=== PATIENT | female | born 1955 | race Caucasian/White ===

== ENCOUNTER 2020-04-03 06:56 | Outpatient (NON) | payer MEDICARE, SELFPAY ==
[2020-04-03 18:19] LABS: SARS-CoV-2 RNA PCR Negative
== END 2020-04-03 06:57 ==
LOC: ANHCOVIDDT 07:08
PROVIDERS: PCP Family Medicine; Visit Provider Family Medicine
DX: R68.89 Other general symptoms and signs (principal); Z20.828 Contact with and (suspected) exposure to other viral communicable diseases
CPT/HCPCS: 87635; C9803; U0003

== ENCOUNTER 2020-04-17 01:05 | Outpatient (CLI) | payer MEDICARE, SELFPAY ==
[2020-04-17 19:42] LABS: SARS-CoV-2 RNA PCR Negative
== END 2020-04-17 01:06 | disposition home or self-care (01) ==
LOC: ANHCOVIDDT 01:05
PROVIDERS: PCP Family Medicine; Visit Provider Internal Medicine Gastroenterology
DX: Z01.812 Encounter for preprocedural laboratory examination (principal); Z20.822 Contact with and (suspected) exposure to COVID-19
CPT/HCPCS: C9803; U0003

== ENCOUNTER 2020-04-20 00:37 | Day surgery (SDC) | payer MEDICARE, SELFPAY ==
[2020-04-09 10:29] VITALS: BMI 32.5
[2020-04-20 12:50] VITALS: BP 144/50; PULSE 75; RESP 20; TEMP 37.4; O2SAT 98
[2020-04-20] MEDS: LACTATED RINGERS 1,000 ML 150 ML IV CONT (13:03)
--- NOTE | 2020-04-20 13:07 | WPDANESEPPF ---
Anes - Initial Pre Proc Eval Procedure: Operation Date: 04/20/20 14:00 Proposed Procedures p Esophagogastroduodenoscopy - Vipin Valentin MD Date/Time: 04/20/20 13:07 Surgeon: Vipin Valentin MD Pre Op Diagnosis: Dysphagia,GERD Patient Data Age: 64 Gender: F Height: 5 ft 1 in Weight: 78.5 kg Last Vital Signs Temp 99.3 F 04/20/20 12:50 Pulse 75 04/20/20 12:50 Resp 20 04/20/20 12:50 BP 144/50 H 04/20/20 12:50 Pulse Ox 98 04/20/20 12:50 Allergies Allergy/AdvReac Type Severity Reaction Status Date / Time ciprofloxacin Allergy Severe blisters Verified 04/20/20 12:42 codeine Allergy Mild itching Verified 04/20/20 12:42 latex Allergy Unknown Rash Verified 04/20/20 12:42 Home Medications Medication Instructions Recorded Confirmed Type levothyroxine 112 mcg tablet 112 mcg PO DAILY #90 tablet 09/26/19 04/09/20 Rx montelukast 10 mg tablet 10 mg PO DAILY #90 tablet 09/26/19 04/09/20 Rx omeprazole 40 mg capsule,delayed 40 mg PO DAILY #90 cap 09/26/19 04/09/20 Rx release sertraline 50 mg tablet 50 mg PO BID #180 tablet 09/26/19 04/09/20 Rx zolpidem 10 mg tablet 10 mg PO ONCE #30 tablet 01/30/20 04/09/20 Rx meloxicam 15 mg tablet 15 mg PO DAILY #90 tablet 02/06/20 04/09/20 Rx budesonide 90 mcg/actuation breath 1 inh INHALATION Q12H #1 ea 03/20/20 04/09/20 Rx activated powder inhaler rosuvastatin 5 mg tablet 5 mg PO DAILY #90 tablet 03/23/20 04/09/20 Rx famotidine 20 mg tablet 20 mg PO DAILY #90 tablet 03/28/20 04/09/20 Rx alprazolam 0.25 mg tablet 0.25 mg PO BID #180 tablet 04/16/20 Rx Patient hx anesthesia problems: none Family hx anesthesia problems: none PMFSH Past Medical History Medical History Aftercare following surgery (09/10/19) Benign essential hypertension Chronic insomnia Gastro-esophageal reflux disease without esophagitis Generalized anxiety disorder Hypothyroidism, unspecified Primary osteoarthritis of left knee Stress at home Surgical History Surgical History Hx of hysterectomy Presence of left artificial knee joint (12/21/18) Family History Family History Father Cerebrovascular accident, Onset Age: 75 Patient's father is Sibling Cerebrovascular accident Other Hypertension Social History Social History Social History: Life Partner Smoking status: Never smoker Second hand tobacco smoke exposure: Yes Alcohol intake: never Substance use: never Substance use type: does not use Living arrangements: alone Gender identity (if verbalized by the patient): Female Spiritual care concerns: No Anes - Eval Final PreProcedure Day of Procedure 04/20/20 13:07 Patient weight: normal Heart: regular rate and rhythm Lungs: clear to auscultation Airway: Mallampati scale class II Neurological: alert and oriented Last oral intake: >/= 8 hours ASA classification: II Emergent: no Anesthetic plan: proceed Anesthesia type and monitoring: general GIVS and standard monitoring Informed Consent: The patient's anesthetic plan and its attendant risks and benefits were discussed with the patient/family/POA. Questions were solicited and answers provided to the satisfaction of the patient/family/POA.
--- NOTE | 2020-04-20 13:08 | WPDHPUPDATE1 ---
History and Physical Update Update Date/Time: 04/20/20 13:08 History and Physical has been reviewed, including an updated exam of the patient. There are NO changes in the patient's condition. Risks, benefits, and alternatives have been discussed and questions answered. Patient agrees to proceed with procedure.
[2020-04-20] MEDS: BENZOCAINE (*SP) 60 ML SPRAY CAN (HURRICAINE) 1 SPRAY MUCOUS MEM (13:11)
[2020-04-20 13:22] VITALS: BP 139/71; PULSE 68; RESP 14; O2SAT 97
[2020-04-20 13:32] VITALS: BP 141/54; PULSE 72; RESP 16; O2SAT 98
[2020-04-20 13:42] VITALS: BP 143/59; PULSE 70; RESP 18; O2SAT 99
== END 2020-04-20 14:00 | disposition home or self-care (01) ==
PROVIDERS: PCP Family Medicine; Visit Provider Internal Medicine Gastroenterology
PROC: 0DJ08ZZ Inspection of Upper Intestinal Tract, Via Natural or Artificial Opening Endoscopic (ICD-10-PCS; CPT 43235; principal; 2020-04-20 14:00)
DX: R13.10 Dysphagia, unspecified (principal); K21.9 Gastro-esophageal reflux disease without esophagitis; K20.0 Eosinophilic esophagitis; I10 Essential (primary) hypertension; F41.1 Generalized anxiety disorder; E03.9 Hypothyroidism, unspecified; M17.12 Unilateral primary osteoarthritis, left knee; K20.90 Esophagitis, unspecified without bleeding
CPT/HCPCS: 43239; 88305; J2001; J2704; J7120

== ENCOUNTER 2020-07-30 11:07 | Outpatient (CLI) | payer MEDICARE, SELFPAY ==
[2020-07-30 12:10] LABS: Basophils Absolute Auto 0.1 K/mm3 (0.0-0.1); Basophils Percent Auto 0.7 % (0.2-1.2); Eosinophils Absolute Auto 0.3 K/mm3 (0-0.3); Eosinophils Percent Auto 3.7 % (0-4.4); Hematocrit 45.3 % (37.0-47.0); Hemoglobin 15.5 g/dL (12.0-15.0); Immature Granulocyte Absolute 0.04 K/mm3 (0.00-0.031); Immature Granulocyte Percent A 0.4 % (0-0.5); Lymphocytes Percent Auto 20.8 % (18.3-44.2); Mean Corpuscular HGB Conc 34.2 g/dl (32-36); Mean Corpuscular Hemoglobin 29.4 pg (26-34); Mean Corpuscular Volume 85.8 fl (80-100); Mean Platelet Volume 9.5 fl (7.4-10.4); Monocytes Absolute Auto 0.6 K/mm3 (0.1-0.6); Monocytes Percent Auto 6.9 % (2.6-8.5); Neutrophils Absolute Auto 6.2 K/mm3 (1.3-6.7); Neutrophils Percent Auto 67.5 % (45.5-73.1); Platelet Count Result 367 k/mm3 (150-375); Red Blood Count 5.28 M/mm3 (4.2-5.4); Red Cell Distribution Width 12.2 % (11.5-14.5); White Blood Count 9.1 K/mm3 (4.5-10.0)
[2020-07-30 12:14] LABS: Add Urine Microscopic? YES; Appearance Urine Cloudy (Clear); Bilirubin Urine Negative (Negative); Blood Urine Negative (Negative); Color Urine Yellow (Yellow); Glucose Urine UA Negative (Negative); Ketones Urine Negative (Negative); Leukocyte Esterase Ur Negative LEU/UL (Negative); Mucus Urine Few /lpf; Nitrate Urine Negative (Negative); Protein Urine 1+ mg/dL (Negative); RBC Urine 0-2 /hpf (0-2); Specific Grav Ur 1.025 (1.001-1.035); Squamous Epithelial Cell Urine Few /hpf (Few); Urobilinogen Urine Negative mg/dL (<2.0); WBC Urine 0-3 /hpf
[2020-07-30 12:20] LABS: Alanine Aminotransferase 13 U/L (4-35); Albumin Level 4.6 g/dL (3.5-5.1); Alkaline Phosphatase 63 U/L (38-126); Anion Gap 6 mmol/L (8-16); Aspartate Amino Transferase 33 U/L (14-36); Bilirubin,Total 0.4 mg/dL (0.2-1.3); Blood Urea Nitrogen 17 mg/dL (7-17); Calcium 9.9 mg/dL (8.4-10.2); Carbon Dioxide 30 mmol/L (22-30); Chloride 103 mmol/L (98-107); Estimated Glomerular Filt Rate > 60; Glucose 95 mg/dL (65-105); Potassium 4.2 mmol/L (3.4-5.0); Sodium 139 mmol/L (137-145)
== END 2020-07-30 11:08 | disposition home or self-care (01) ==
PROVIDERS: PCP Family Medicine; Visit Provider Physician Assistant
DX: R10.31 Right lower quadrant pain (principal); I10 Essential (primary) hypertension; R30.0 Dysuria; R10.9 Unspecified abdominal pain
CPT/HCPCS: 36415; 80053; 81001; 85025

== ENCOUNTER 2020-08-21 09:49 | Outpatient (CLI) | payer MEDICARE, SELFPAY ==
--- NOTE | ~2020-08-21 | DEXA_ITS ---
Bone Density Report Name: Silvana Santos Age: 65 Sex: Female Ethnicity: White Date of : 1955 Indication: postmenopausal; prior fracture; hysterectomy; Referring Provider: ANÍBAL SUAREZ Study: Bone densitometry was performed. Exam Date: August 21, 2020 Accession number: [id number] Bone Density: Region BMD T-score Z-score Classification AP Spine (L1-L4) 0.837 -1.9 -0.1 Osteopenia Femoral Neck (Left) 0.604 -2.2 -0.6 Osteopenia Total Hip (Left) 0.772 -1.4 -0.1 Osteopenia Total Hip Bilateral Avg 0.766 -1.5 -0.2 Osteopenia Femoral Neck (Right) 0.619 -2.1 -0.5 Osteopenia Total Hip (Right) 0.758 -1.5 -0.2 Osteopenia World Health Organization criteria for BMD impression classify patients as: Normal (T-score at or above -1.0), Osteopenia (T-score between -1.0 and -2.5), or Osteoporosis (T-score at or below -2.5). 10-year Fracture Risk(1): Major Osteoporotic Fracture 18% Hip Fracture 3.0% Reported Risk Factors: [place] (), Neck BMD=0.604, BMI=31.2, previous fracture (1) FRAX(R) Version 3.08. Fracture probability calculated for an untreated patient. Fracture probability may be lower if the patient has received treatment. Clinical Information Provided by Patient: Has had a low trauma fracture Has the following medical conditions: Hysterectomy Patient maximum height was 62 Menopause Age: 40 No regular weight bearing exercise Drinks caffeinated beverages Onset of menses at age 11 Number of children 0 Impression: The patient has low bone mass, based on the Left Femoral Neck T-score. The patient has an estimated ten-year risk of hip fracture of 3% and an estimated ten-year risk of major fracture of 18%, based on the WHO FRAX algorithm. The patient has risk factors, including: previous fracture. Discussion: BONE DENSITY IS LOW AT ONE OR MORE SKELETAL SITES. THE PATIENT'S BMD AND CLINICAL RISK FACTORS CONTRIBUTE TO THIS PATIENT'S INCREASED RISK OF FRACTURE. This patient's lowest T-score is low at one or more skeletal sites. It meets the World Health Organization's (WHO) criteria for ?low bone mass? (T-score between -1.0 and -2.5). The patient's 10-year risk of hip fracture as calculated by FRAX exceeds the threshold where pharmacological therapy is recommended by the National Osteoporosis Foundation (NOF). However, all treatment decisions require clinical judgment and consideration of individual patient factors, including patient preferences, comorbidities, previous drug use, risk factors not captured in the FRAX model (e.g., frailty, falls, vitamin D deficiency, increased bone turnover, interval significant decline in bone density) and possible under or overestimation of fracture risk by FRAX. The patient should follow a healthful lifestyle (good nutrition with adequate calcium and vitamin D, and appropriat
--- NOTE | ~2020-08-21 | MM_ITS ---
EXAMINATION: MM screening [facility] BI w sabrina HISTORY: Screening mammogram TECHNIQUE: Craniocaudal and mediolateral oblique 3-D tomosynthesis images were obtained and synthetic 2-D images were generated. CAD analysis was submitted and interpreted. COMPARISON: 06/25/2010, 05/24/2010, 05/03/2007 BREAST PARENCHYMAL COMPOSITION: There are scattered areas of fibroglandular density. FINDINGS: There is no evidence of suspicious mass, calcification, or architectural distortion to sugg est malignancy in either breast. There has been no suspicious interval change. IMPRESSION: 1. No mammographic evidence of malignancy. 2. Recommend routine screening mammography in one year. BI-RADS Category 1: Negative Reviewed, dictated and finalized at location A.
== END 2020-08-21 09:50 | disposition home or self-care (01) ==
LOC: ANHIMG 09:55
PROVIDERS: PCP Family Medicine; Visit Provider Family Medicine
DX: Z12.31 Encounter for screening mammogram for malignant neoplasm of breast (principal); Z78.0 Asymptomatic menopausal state; M85.88 Other specified disorders of bone density and structure, other site; M85.852 Other specified disorders of bone density and structure, left thigh; M85.851 Other specified disorders of bone density and structure, right thigh
CPT/HCPCS: 77063; 77067; 77080

== ENCOUNTER 2020-12-10 10:35 | Outpatient (CLI) | payer MEDICARE, SELFPAY | END 2020-12-10 10:36 | disposition home or self-care (01) | LOC: ANHAUDASC 10:37 | PROVIDERS: PCP Family Medicine; Visit Provider Otolaryngology | DX: H90.3 Sensorineural hearing loss, bilateral (principal) | CPT/HCPCS: 92557; 92567 ==

== ENCOUNTER 2021-06-24 13:00 | Outpatient (RCR) | payer MEDICARE, SELFPAY | END 2021-07-16 23:59 | disposition home or self-care (01) | LOC: ANHAUDASC 13:00 | PROVIDERS: PCP Family Medicine; Visit Provider Family Medicine | DX: Z46.1 Encounter for fitting and adjustment of hearing aid (principal) | CPT/HCPCS: 99199; V5257; V5264 ==

== ENCOUNTER 2021-07-02 11:35 | Outpatient (CLI) | payer MEDICARE, SELFPAY ==
--- NOTE | ~2021-07-02 | XR_ITS ---
EXAMINATION: XR chest 2V 07/02/2021 12:05 INDICATION: Shortness of breath and cough PROCEDURE: 2 view chest COMPARISON: 08/28/2015 FINDINGS: The lungs are clear. The cardiomediastinal silhouette is within normal limits. There are no pleural effusions. There is no pneumothorax suspected. There is a calcified granuloma left lower lung. IMPRESSION: 1: NO ACUTE CARDIOPULMONARY DISEASE. Reviewed, dictated and finalized at location A.
--- NOTE | ~2021-07-02 | XR_ITS ---
XR lumbar spine min 4V 07/02/2021 12:06 Indication: Low back pain Procedure: 5 views lumbar spine Comparison: No prior studies for comparison. Findings: There is mild levocurvature of the lumbar spine. There is disc narrowing at L2-3 through L5 -S1. There is grade 2 spondylolisthesis at L5-S1. Vertebral body heights are maintained. Sacral foramen are symmetric. Impression: 1: Moderate lumbar spondylosis with grade 2 spondylolisthesis at L5-S1. Reviewed, dictated and finalized at location A. Impression: 1: Moderate lumbar spondylosis with grade 2 spondylolisthesis at L5-S1.
--- NOTE | ~2021-07-02 | XR_ITS ---
EXAMINATION: XR hip RT min 2V DATE: 07/02/2021 12:05 INDICATION: Trochanteric bursitis of the right hip TECHNIQUE: Two views of right hip were obtained. COMPARISON: None. FINDINGS: Bone alignment is normal. There is no fracture. There is mild osteoarthritis of the hip. Th e soft tissues are unremarkable. IMPRESSION: 1. Mild osteoarthritis.. Reviewed, dictated and finalized at location B. IMPRESSION: 1. Mild osteoarthritis..
== END 2021-07-02 11:36 | disposition home or self-care (01) ==
LOC: ANHIMG 11:42
PROVIDERS: PCP Family Medicine; Visit Provider Nurse Practitioner Gerontology
DX: M70.61 Trochanteric bursitis, right hip (principal); R06.02 Shortness of breath; M47.896 Other spondylosis, lumbar region; M16.11 Unilateral primary osteoarthritis, right hip
CPT/HCPCS: 71046; 72110; 73502

== ENCOUNTER → 2021-10-11 03:01 | Outpatient (CLI) | payer MEDICARE, SELFPAY ==
[2021-10-11 16:51] LABS: SARS-CoV-2 RNA PCR Negative
== END ==
PROVIDERS: Nurse Practitioner Gerontology; PCP Family Medicine; Visit Provider Family Medicine
DX: R68.89 Other general symptoms and signs (principal); Z20.822 Contact with and (suspected) exposure to COVID-19
CPT/HCPCS: C9803; U0003; U0005

== ENCOUNTER 2022-01-13 08:58 | Outpatient (CLI) | payer MEDICARE, SELFPAY ==
--- NOTE | ~2022-01-13 | MM_ITS ---
EXAMINATION: MM screening [facility] BI w sabrina HISTORY: Screening mammogram TECHNIQUE: Craniocaudal and mediolateral oblique 3-D tomosynthesis images were obtained and synthetic 2-D images were generated. CAD analysis was submitted and interpreted. COMPARISON: 08/21/2020, 06/25/2010, 05/24/2010 BREAST PARENCHYMAL COMPOSITION: There are scattered areas of fibroglandular density. FINDINGS: There is no suspicious mass, calcification, or architectural distortion to suggest malignan cy in either breast. There has been no suspicious interval change. IMPRESSION: 1. No mammographic evidence of malignancy. 2. Recommend routine screening mammography in one year. BI-RADS Category 1: Negative Reviewed, dictated and finalized at location A.
== END 2022-01-13 08:59 | disposition home or self-care (01) ==
LOC: ANHIMG 09:01
PROVIDERS: PCP Family Medicine; Visit Provider Family Medicine
DX: Z12.31 Encounter for screening mammogram for malignant neoplasm of breast (principal)
CPT/HCPCS: 77063; 77067

== ENCOUNTER 2022-05-12 02:18 | Day surgery (SDC) | payer MEDICARE, SELFPAY ==
[2022-04-24 13:57] VITALS: BMI 32.1
[2022-05-12 09:54] VITALS: BP 118/77; PULSE 69; RESP 18; TEMP 36.1; O2SAT 100; BMI 32.3
[2022-05-12] MEDS: LACTATED RINGERS 1,000 ML 150 ML IV CONT (10:06)
--- NOTE | 2022-05-12 10:12 | WPDANESEPPF ---
Anes - Initial Pre Proc Eval Procedure: Operation Date: 05/12/22 11:00 Proposed Procedures p Esophagogastroduodenoscopy - Vipin Valentin MD Date/Time: 05/12/22 10:12 Surgeon: Vipin Valentin MD Pre Op Diagnosis: dysphagia Patient Data Age: 66 Gender: F Height: 1.55 m Weight: 77.5 kg Last Vital Signs Temp 97.0 F L 05/12/22 09:54 Pulse 69 05/12/22 09:54 Resp 18 05/12/22 09:54 BP 118/77 05/12/22 09:54 Pulse Ox 100 05/12/22 09:54 O2 Del Method Room Air 05/12/22 09:54 Allergies Allergy/AdvReac Type Severity Reaction Status Date / Time ciprofloxacin Allergy Severe blisters Verified 05/12/22 09:52 codeine Allergy Mild itching Verified 05/12/22 09:52 latex Allergy Unknown Rash Verified 05/12/22 09:52 Home Medications Medication Instructions Recorded Confirmed Type famotidine 20 mg tablet (Acid 20 mg PO DAILY #90 tabs 03/26/21 05/12/22 Rx Extension Worker (famotidine)) meloxicam 15 mg tablet See Rx Instructions .Route 09/02/21 05/12/22 Rx .COMPLEX #90 tabs losartan 25 mg tablet See Rx Instructions .Route 09/10/21 05/12/22 Rx .COMPLEX #90 tabs omeprazole 40 mg capsule,delayed 40 mg PO DAILY #90 caps 12/17/21 05/12/22 Rx release sertraline 50 mg tablet 50 mg PO BID #90 tabs 01/29/22 05/12/22 Rx levothyroxine 112 mcg tablet See Rx Instructions .Route 01/30/22 05/12/22 Rx .COMPLEX #90 tabs gabapentin 300 mg capsule See Rx Instructions .Route 02/10/22 05/12/22 Rx .COMPLEX #60 caps alprazolam 0.25 mg tablet 0.25 mg PO BID #90 tabs 03/25/22 05/12/22 Rx zolpidem 10 mg tablet 10 mg PO QHS 30 days #30 tabs 03/25/22 05/12/22 Rx loratadine 10 mg tablet (Claritin) 10 mg PO DAILY 04/24/22 05/12/22 History rosuvastatin 5 mg tablet 5 mg PO DAILY 05/12/22 05/12/22 History Patient hx anesthesia problems: none Family hx anesthesia problems: none Results Review: All pre-operative results and documents have been reviewed as part of the pre-operative evaluation. [facility] Past Medical History Medical History Aftercare following surgery (12/21/18) Benign essential hypertension Breast cancer screening Chronic insomnia Cough Gastro-esophageal reflux disease without esophagitis Generalized anxiety disorder Hypothyroidism, unspecified Impacted cerumen of left ear Obese Osteoporosis screening Pes anserine bursitis Primary osteoarthritis of left knee RLQ abdominal pain Stress at home Upper respiratory infection Surgical History Surgical History History of left mastoidectomy Hx of hysterectomy Presence of left artificial knee joint (12/21/18) Family History Family History Father Cerebrovascular accident, Onset Age: 75 Patient's father is Hypertension Sibling Cerebrovascular accident Mother Heart disease Thyroid disorder Social History Social History Social History: Life Partner Smoking status: Never smoker Second hand tobacco smoke exposure: Yes Alcohol intake: never Substance use: never Substance use type: does not use Lack of Transportation: No Lack of Food: Never True Current Housing: I Have Housing Concerned About Future Housing: No Difficulty Paying Gas/Electric Bills: No Difficulty Paying for Meds: No Currently Unemployed: No Education: High School Diploma/GED Difficulty w/ Childcare or Family Care: No Living arrangements: with family Occupation/Education: retired Gender identity (if verbalized by the patient): Female Sexual Orientation (if Verbalized by the Patient): Lesbian, Flynn, or Homosexual Spiritual care concerns: No Anes - Eval Final PreProcedure Day of Procedure 05/12/22 10:12 Patient weight: obese Heart: regular rate and rhythm Lung
--- NOTE | 2022-05-12 10:27 | PM.HPGS ---
History of Present Illness History of Present Illness Consent: Risks, benefits, and alternatives have been discussed and questions answered. Patient agrees to proceed with procedure. Chief complaint: dysphagia Narrative: Silvana Santos is a 66 year old female with know history of EoE, last egd 2020 without stricture or obvious esophagitis, bx showed mild esophagitis. She is taking ppi, not longer using inhaled steroid (it was helping some but unable to afford it), still with dysphagia. Review of Systems Constitutional: Constitutional: Denies headache(s) and Denies weakness Eyes: Eyes: Denies blurry vision ENT: Reports Normal hearing present, Denies headache(s) and Denies neck pain Cardiovascular: Cardiovascular: Denies chest pain and Denies dyspnea Respiratory: Respiratory: Denies dyspnea Gastrointestinal: Gastrointestinal: Reports no additional gastrointestinal complaints Genitourinary: Genitourinary: Denies dysuria Musculoskeletal: Musculoskeletal: Denies neck pain Integumentary/Breasts: Skin/Breast: Denies dry skin Neurologic: Reports Normal hearing present, Denies headache(s) and Denies weakness Psychiatric: Psychiatric: Denies anxiety Endocrine: Endocrine: Denies change in body appearance Hematologic/Lymphatic: Hematologic/Lymphatic: Denies easy bleeding Allergic/Immunologic: Allergic/Immunologic: Denies urticaria PMFSH Past Medical History Medical History Aftercare following surgery (12/21/18) Benign essential hypertension Breast cancer screening Chronic insomnia Cough Gastro-esophageal reflux disease without esophagitis Generalized anxiety disorder Hypothyroidism, unspecified Impacted cerumen of left ear Obese Osteoporosis screening Pes anserine bursitis Primary osteoarthritis of left knee RLQ abdominal pain Stress at home Upper respiratory infection Surgical History Surgical History History of left mastoidectomy Hx of hysterectomy Presence of left artificial knee joint (12/21/18) Family History Family History Father Cerebrovascular accident, Onset Age: 75 Patient's father is Hypertension Sibling Cerebrovascular accident Mother Heart disease Thyroid disorder Social History Social History Social History: Life Partner Smoking status: Never smoker Second hand tobacco smoke exposure: Yes Alcohol intake: never Substance use: never Substance use type: does not use Lack of Transportation: No Lack of Food: Never True Current Housing: I Have Housing Concerned About Future Housing: No Difficulty Paying Gas/Electric Bills: No Difficulty Paying for Meds: No Currently Unemployed: No Education: High School Diploma/GED Difficulty w/ Childcare or Family Care: No Living arrangements: with family Occupation/Education: retired Gender identity (if verbalized by the patient): Female Sexual Orientation (if Verbalized by the Patient): Lesbian, Flynn, or Homosexual Spiritual care concerns: No Meds Home Medications and Allergies Home Medications Medication Instructions Recorded Confirmed Type famotidine 20 mg tablet (Acid 20 mg PO DAILY #90 tabs 03/26/21 05/12/22 Rx Nurse Case Management (famotidine)) meloxicam 15 mg tablet See Rx Instructions .Route 09/02/21 05/12/22 Rx .COMPLEX #90 tabs losartan 25 mg tablet See Rx Instructions .Route 09/10/21 05/12/22 Rx .COMPLEX #90 tabs omeprazole 40 mg capsule,delayed 40 mg PO DAILY #90 caps 12/17/21 05/12/22 Rx release sertraline 50 mg tablet 50 mg PO BID #90 tabs 01/29/22 05/12/22 Rx levothyroxine 112 mcg tablet See Rx Instructions .Route 01/30/22 05/12/22 Rx .COMPLEX #90 tabs gabapentin 300 mg capsule See Rx Instructions .Route 02/10/22 05/12/22 Rx
[2022-05-12 10:44] VITALS: BP 120/62; PULSE 71; RESP 13; O2SAT 97
[2022-05-12 10:54] VITALS: BP 111/61; PULSE 68; RESP 15; O2SAT 100
[2022-05-12 11:04] VITALS: BP 125/58; PULSE 70; RESP 16; O2SAT 100
== END 2022-05-12 11:15 | disposition home or self-care (01) ==
PROVIDERS: PCP Family Medicine; Visit Provider Internal Medicine Gastroenterology
PROC: 0DJ08ZZ Inspection of Upper Intestinal Tract, Via Natural or Artificial Opening Endoscopic (ICD-10-PCS; CPT 43235; principal; 2022-05-12 11:00)
DX: K20.0 Eosinophilic esophagitis (principal); R13.10 Dysphagia, unspecified; I10 Essential (primary) hypertension; F41.1 Generalized anxiety disorder; E03.9 Hypothyroidism, unspecified; E66.9 Obesity, unspecified; Z68.32 Body mass index [BMI] 32.0-32.9, adult
CPT/HCPCS: 43239; 88305; J2704; J7120

== ENCOUNTER 2022-07-04 09:02 | Outpatient (CLI) | payer MEDICARE, SELFPAY ==
--- NOTE | 2022-07-08 20:02 | WPDPFTINT ---
PFT Procedure Performed PFT Procedure Performed Plethysmography (Lung Vol) Diffusing Cap (DLCO) Flow Vol Loop Spirometry w/o Bronchodil PFT Interpretation DOS: 07/04/2022 REQUESTING: Zeinab Wright NP REASON FOR TESTING: Cough PULMONARY FUNCTION TESTS Results are reliable and reproducible. Spirometry: FEV1 1.93 L, 94%, normal. FVC 2.58 L, 98%, normal. FEV1: FVC is 75%, normal. No bronchodilator was given. Lung volumes: Total lung capacity is 4.85 L, 105%, normal. Residual volume is 2.15 L, 107% predicted, normal. RV/TLC is 44%, normal. Airway resistance 123%, normal. Diffusion: DLCO is 15.0, 77%, normal. FEV1/FVC is 3.99, 89%, normal. Flow volume loop: Normal. IMPRESSION: Normal spirometry, lung volumes and diffusion. No bronchodilator was administered. No prior studies for comparison. Kirsten Lee MD
== END 2022-07-04 09:03 | disposition home or self-care (01) ==
LOC: ANHPFT 09:03
PROVIDERS: PCP Family Medicine; Visit Provider Nurse Practitioner Gerontology
DX: R05.9 Cough, unspecified (principal)
CPT/HCPCS: 94375; 94726; 94729

== ENCOUNTER 2022-11-11 11:48 | Outpatient (CLI) | payer MEDICARE, SELFPAY ==
--- NOTE | ~2022-11-11 | XR_ITS ---
EXAMINATION: XR ankle RT min 3V DATE: 11/11/2022 12:15 INDICATION: Right ankle pain post injury TECHNIQUE: Anteroposterior, oblique, mortise, and lateral views of the right ankle were obtained. COMPARISON: None. FINDINGS: Alignment is normal. No fracture. Mild osteoarthritis at the right ankle and at the second-fifth tar richard metatarsal joints. No ankle joint effusion. The soft tissues are unremarkable. IMPRESSION: 1. Mild osteoarthritis at the right ankle and midfoot. No acute osseous abnormality. Reviewed, dictated and finalized at location L. IMPRESSION: 1. Mild osteoarthritis at the right ankle and midfoot. No acute osseous abnorma lity.
== END 2022-11-11 11:49 | disposition home or self-care (01) ==
PROVIDERS: PCP Family Medicine; Visit Provider Physician Assistant
DX: S99.911A Unspecified injury of right ankle, initial encounter (principal); X58.XXXA Exposure to other specified factors, initial encounter; M19.071 Primary osteoarthritis, right ankle and foot
CPT/HCPCS: 73610

== ENCOUNTER → 2023-02-09 14:53 | Outpatient (CLI) | payer MEDICARE, SELFPAY ==
--- NOTE | ~2023-02-09 | MR_ITS ---
EXAMINATION: MR hip RT wo con DATE: 02/09/2023 15:56 INDICATION: Unilateral primary osteoarthritis, right hip. Right hip pain. TECHNIQUE: Magnetic resonance imaging (MRI) of the right hip was performed without intravenous contra st. COMPARISON: Pelvis and right hip radiographs 12/19/2022 FINDINGS: Bones/cartilage: There is lumbar levocurvature and severe spondylosis. There is moderate osteoarthritis of the hips. S mall [id number] images of right hip demonstrate partial-thickness cartilage loss. Labrum: The right acetabular labrum is normal. Fluid: There is no hip joint effusion. There is mild bilateral trochanteric bursitis. Soft tissues: There is tendinopathy and partial tear of right gluteus minimus tendon. Right gluteus medius tendon i s normal. There is mild left gluteus minimus tendinopathy. Left gluteus medius tendon is normal. The iliopsoas tendons are normal. There is mild tendinopathy of the hamstring origins bilaterally. IMPRESSION: 1. Moderate osteoarthritis of the hips. 2. Tendinopathy and partial tear of right gluteus minimus tendon. Reviewed, dictated and finalized at location E.
== END ==
PROVIDERS: PCP Orthopaedic Surgery; Visit Provider Orthopaedic Surgery
DX: M16.11 Unilateral primary osteoarthritis, right hip (principal)
CPT/HCPCS: 73721

== ENCOUNTER → 2023-02-11 12:15 | Outpatient (CLI) | payer MEDICARE, SELFPAY ==
--- NOTE | ~2023-02-11 | DEXA_ITS ---
Bone Density Report Name: MARY HAWK Age: 67 Sex: Female Ethnicity: White Date of : 1955 Indication: postmenopausal; screening for osteoporosis; height loss; hysterectomy; Referring Provider: ELLI, AMIE Porras Study: Bone densitometry was performed. Exam Date: February 11, 2023 Accession number: [id number] Bone Density: Region BMD T-score Z-score Classification AP Spine (L1-L4) 0.850 -1.8 0.2 Osteopenia Femoral Neck (Left) 0.560 -2.6 -0.9 Osteoporosis Total Hip (Left) 0.755 -1.5 -0.1 Osteopenia Femoral Neck (Right) 0.626 -2.0 -0.3 Osteopenia Total Hip (Right) 0.766 -1.4 0.0 Osteopenia Total Hip Mean 0.761 -1.5 -0.1 Osteopenia World Health Organization criteria for BMD impression classify patients as: Normal (T-score at or above -1.0), Osteopenia (T-score between -1.0 and -2.5), or Osteoporosis (T-score at or below -2.5). 10-year Fracture Risk: FRAX not reported because: Some T-score for Spine Total or Hip Total or Femoral Neck at or below -2.5 Clinical Information Provided by Patient: Has the following medical conditions: Hysterectomy Patient maximum height was 62.0 Menopause Age: 44 No regular weight bearing exercise Drinks caffeinated beverages Onset of menses at age 11 Number of children 0 Impression: The patient has osteoporosis, based on the Left Femoral Neck T-score. Discussion: INCREASED RISK OF FRACTURE. BONE DENSITY IS UNDESIRABLY LOW AT ONE OR MORE SKELETAL SITES, CONSISTENT WITH POSTMENOPAUSAL OSTEOPOROSIS. This patient's lowest T-score meets the World Health Organization's (WHO) criteria for osteoporosis at one or more sites (T-score -2.5 or below). In untreated patients, the risk of osteoporotic fracture increases approximately two-fold for each 1.0 SD decrease in T-score. Low bone density is not the only risk factor for fracture; also consider factors such as patient's age, frailty or poor health, risk of falling, risk of injury, previous osteoporotic fracture, family history of osteoporosis, cigarette smoking, low body weight, etc. Not everyone with low bone mineral density has osteoporosis; osteomalacia and other metabolic bone disorders should also be considered. Patients who have osteoporosis should be evaluated for specific diseases and conditions (secondary causes) that may cause or contribute to bone loss. The [place] [employer] Clinical Endocrinologists (AACE) and National Osteoporosis Foundation (NOF) recommend pharmacologic intervention for all postmenopausal women whose T-score is in this range. The patient should follow a healthful lifestyle (good nutrition with adequate calcium and vitamin D, and appropriate weight-bearing exercise). Follow-Up: Consider a repeat BMD and Vertebral Fracture Assessment (VFA) exam in 2 years or sooner if medically necessary, to
== END ==
PROVIDERS: PCP Family Medicine; Visit Provider Nurse Practitioner Gerontology
DX: Z78.0 Asymptomatic menopausal state (principal); M85.88 Other specified disorders of bone density and structure, other site; M81.0 Age-related osteoporosis without current pathological fracture; M85.852 Other specified disorders of bone density and structure, left thigh; M85.851 Other specified disorders of bone density and structure, right thigh
CPT/HCPCS: 77080

== ENCOUNTER 2023-02-24 13:20 | Outpatient (CLI) | payer MEDICARE, SELFPAY ==
--- NOTE | 2023-02-24 13:35 | ECG_ITS ---
Measurements Intervals [place] Rate: 68 P: 56 DE: 189 QRS: 52 QRSD: 90 T: 52 QT: 378 QTc: 402 Interpretive Statements SINUS RHYTHM LOW QRS VOLTAGE IN PRECORDIAL LEADS CANNOT RULE OUT SEPTAL INFARCT, AGE INDETERMINATE BORDERLINE ST ABNORMALITY- INFERIOR LEADS BASELINE WANDER- V4-V6 ABNORMAL ECG COMPARED TO ECG 12/14/2018 15:00:28 NO SIGNIFICANT CHANGES Electronically Signed On 02-24-2023 13:46:42 FINANCIAL PLANNING ADVISOR by Sohail Sal D.O.
[2023-02-24 13:51] LABS: Hematocrit 42.7 % (37.0-47.0); Hemoglobin 14.2 g/dL (12.0-15.0)
[2023-02-24 13:59] LABS: Albumin Level 4.4 g/dL (3.5-5.1); Estimated Glomerular Filt Rate > 60; Glucose 121 mg/dL (65-110)
== END 2023-02-24 13:21 | disposition home or self-care (01) ==
PROVIDERS: PCP Family Medicine; Visit Provider Orthopaedic Surgery
DX: E78.5 Hyperlipidemia, unspecified (principal); I38 Endocarditis, valve unspecified; M16.11 Unilateral primary osteoarthritis, right hip
CPT/HCPCS: 36415; 82040; 82565; 82947; 85014; 85018; 93005

== ENCOUNTER 2023-03-18 09:54 | Outpatient (CLI) | payer MEDICARE, SELFPAY ==
[2023-03-18 11:06] LABS: Basophils Absolute Auto 0.1 K/mm3 (0.0-0.1); Basophils Percent Auto 0.8 % (0.2-1.2); Eosinophils Absolute Auto 0.2 K/mm3 (0-0.3); Eosinophils Percent Auto 2.3 % (0-4.4); Hemoglobin 14.7 g/dL (12.0-15.0); Immature Granulocyte Absolute 0.02 K/mm3 (0.00-0.031); Immature Granulocyte Percent A 0.3 % (0-0.5); Lymphocytes Absolute Auto 1.87 K/mm3 (0.9-3.2); Lymphocytes Percent Auto 24.2 % (18.3-44.2); Mean Corpuscular HGB Conc 33.4 g/dl (32-36); Mean Corpuscular Hemoglobin 30.4 pg (26-34); Mean Corpuscular Volume 90.9 fl (80-100); Mean Platelet Volume 9.1 fl (7.4-10.4); Monocytes Absolute Auto 0.5 K/mm3 (0.1-0.6); Monocytes Percent Auto 6.3 % (2.6-8.5); Neutrophils Absolute Auto 5.1 K/mm3 (1.3-6.7); Neutrophils Percent Auto 66.1 % (45.5-73.1); Platelet Count Result 311 k/mm3 (150-375); Red Blood Count 4.84 M/mm3 (4.2-5.4); Red Cell Distribution Width 12.1 % (11.5-14.5); White Blood Count 7.7 K/mm3 (4.5-10.0)
[2023-03-18 11:16] LABS: Urine Cotinine NEGATIVE
== END 2023-03-18 09:55 | disposition home or self-care (01) ==
LOC: ANHSURGERY 09:59
PROVIDERS: PCP Family Medicine; Visit Provider Orthopaedic Surgery
DX: M16.11 Unilateral primary osteoarthritis, right hip (principal); Z01.818 Encounter for other preprocedural examination
CPT/HCPCS: 80307; 83036; 85025; 87081

== ENCOUNTER 2023-03-31 08:37 | Outpatient (CLI) | payer MEDICARE, SELFPAY ==
--- NOTE | ~2023-03-31 | XR_ITS ---
AP view of the pelvis and AP and lateral views of the right hip Clinical history: Pain Findings: No acute fracture or dislocation is seen. Osseous alignment is anatomic. Bilateral hip and SI joint spaces are preserved. Soft tissues are unremarkable. Impression: No significant abnormality is seen. Reviewed, dictated and finalized at [facility]. 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
== END 2023-03-31 08:38 | disposition home or self-care (01) ==
LOC: ANHIMG 08:40
PROVIDERS: PCP Family Medicine; Visit Provider Physician Assistant Surgical
DX: M16.11 Unilateral primary osteoarthritis, right hip (principal)
CPT/HCPCS: 73502

== ENCOUNTER 2023-04-15 15:39 | Inpatient (IN) | payer MEDICARE, SELFPAY ==
--- NOTE | 2023-03-18 09:45 | PC.NURSE ---
PRE-OP INSTRUCTIONS, PLEASE READ CAREFULLY Report to the Outpatient Waiting Room, entrance under the green pavilion located off [facility], at time _0830_ on date _04/14/23_. Planned Procedure Time: _1030_. PACK A SMALL OVERNIGHT BAG AND BRING YOUR WALKER Time changes happen often and if your time is changed the preop area will call you the afternoon before. - You and your visitor will be asked to self-screen and do not enter if you have any COVID symptoms. - A mask is optional within the hospital at this time. -VISITING HOURS 8AM-8PM Patients may have clear liquids (water, carbonated beverages, clear teas, apple juice) until 3 hours prior to surgery (0730 AM) with a maximum of 20 ounces. - No food from midnight until time of surgery Take the following medications with a SIP of water the morning of surgery: _LEVOTHYROXINE, SERTRALINE, & ALPRAZOLAM, PAIN PILL IF NEEDED_ DO NOT STOP ANY OF YOUR OTHER PRESCRIPTION MEDICATIONS PRIOR TO SURGERY ?EXCEPT THE FOLLOWING Medications to discontinue per DR. TROTTER - _MELOXICAM 7 DAYS PRIOR TO SURGERY, Date to take last dose 04/06/23_ Medications to discontinue per ANESTHESIA -_VITAMINS/SUPPLEMENTS 3 DAYS PRIOR TO SURGERY, Date to take last dose 04/10/23_ Please no make-up, nail omani, hairspray, perfume, deodorant, or body powder the day of surgery. No jewelry (including any body piercings) or valuables the day of surgery, leave them at home. Please take a shower or bath the night before, or the morning of, surgery with an antibacterial soap. Wear comfortable, loose fitting clothing. - Jewelry must be removed prior to entering the operating room. Rings and piercings that are not removed may be cut off. - The hospital will not accept responsibility for valuables. - Please leave all valuables, including medications, at home the day of surgery. If you are going home after surgery, a licensed star route mail driver must drive you home. - NO public transportation without another adult if you receive anesthesia. - We recommend that an adult stay with you for 24 hours following discharge. - We also recommend that you do not drive, make important decision, drink alcoholic beverages, or take any drugs that were not prescribed by your health care provider for at least 24 hours after your discharge time. Follow any additional instructions given to you from your surgeon. If you or anyone in your household have experienced Covid symptoms in the past week, please notify your surgeon or the nurse liaison at the phone number below for possible testing. Instructions given to _PATIENT_and asked if any additional questions and then verbalized understanding. Patient advised to call surgeon office or pre surgery nurse liaison [phone] if any additional questions.
[2023-03-18 10:20] VITALS: BP 126/60; PULSE 70; RESP 18; TEMP 37.2; O2SAT 99; BMI 30.1
[2023-04-14] VITALS (13 sets, daily range): BP systolic 96–134; BP diastolic 48–59; PULSE 60–105; RESP 12–20; TEMP 36.2–37.2; O2SAT 92–100
[2023-04-14] MEDS: ACETAMINOPHEN 500 MG TABLET 1000 MG PO ×3 (08:50→21:13)
--- NOTE | 2023-04-14 09:21 | WPDHPUPDATE1 ---
History and Physical Update Update Date/Time: 04/14/23 09:21 History and Physical has been reviewed, including an updated exam of the patient. There are NO changes in the patient's condition. Risks, benefits, and alternatives have been discussed and questions answered. Patient agrees to proceed with procedure.
--- NOTE | 2023-04-14 09:29 | WPDANESEPPF ---
Anes - Initial Pre Proc Eval Procedure: Operation Date: 04/14/23 10:30 Proposed Procedures p Right Total Hip Arthroplasty - Bruno Nickerson MD Date/Time: 04/14/23 09:29 Surgeon: Bruno Nickerson MD Pre Op Diagnosis: primary OA right hip Patient Data Age: 67 Gender: F Height: 1.54 m Weight: 69.5 kg Last Vital Signs Temp 37.2 C 04/14/23 09:25 Pulse 70 04/14/23 09:25 Resp 16 04/14/23 09:25 BP 133/57 L 04/14/23 09:25 Pulse Ox 100 04/14/23 09:25 O2 Del Method Room Air 04/14/23 09:25 Allergies Allergy/AdvReac Type Severity Reaction Status Date / Time ciprofloxacin Allergy Severe blisters Verified 04/01/23 08:59 codeine Allergy Mild itching Verified 04/01/23 08:59 latex Allergy Unknown Rash Verified 04/01/23 08:59 Home Medications Medication Instructions Recorded Confirmed Type loratadine 10 mg tablet (Claritin) 10 mg PO DAILY PRN Congestion 04/24/22 04/14/23 History famotidine 20 mg tablet (Acid 20 mg PO DAILY #90 tabs 05/21/22 04/14/23 Rx Manager Advanced (famotidine)) rosuvastatin 5 mg tablet 5 mg PO DAILY #90 tabs 11/05/22 04/14/23 Rx meloxicam 15 mg tablet See Rx Instructions .Route 11/07/22 04/14/23 Rx .COMPLEX #100 tabs losartan 25 mg tablet See Rx Instructions .Route 12/22/22 04/14/23 Rx .COMPLEX #100 tabs omeprazole 40 mg capsule,delayed See Rx Instructions .Route 01/22/23 04/14/23 Rx release .COMPLEX #90 caps sertraline 100 mg tablet 100 mg PO DAILY #100 tabs 02/01/23 04/14/23 Rx levothyroxine 100 mcg tablet 100 mcg PO DAILY #90 tabs 02/17/23 04/14/23 Rx acetaminophen 500 mg tablet 1,000 mg PO Q6H PRN Pain 03/18/23 04/14/23 History calcium citrate 1,200 mg DAILY 03/18/23 04/14/23 History cholecalciferol (vitamin D3) 10 20 mcg PO DAILY 03/18/23 04/14/23 History mcg (400 unit) capsule gabapentin 300 mg capsule See Rx Instructions .Route 03/18/23 04/14/23 History .COMPLEX PRN Pain nystatin 100,000 unit/gram topical See Rx Instructions .Route 03/18/23 04/14/23 History cream .COMPLEX PRN Skin Irritation triamcinolone acetonide 0.1 % See Rx Instructions .Route 03/18/23 04/14/23 History topical cream .COMPLEX PRN Skin Irritation zolpidem 10 mg tablet 10 mg PO QHS #30 tabs 04/07/23 04/14/23 Rx alprazolam 0.25 mg tablet 0.25 mg PO PRN PRN Anxiety 04/14/23 04/14/23 History aspirin 81 mg tablet,delayed 81 mg PO BID 14 days #28 tabs 04/14/23 Rx release meloxicam 15 mg tablet 15 mg PO DAILY #30 tabs 04/14/23 Rx oxycodone-acetaminophen 5 mg-325 1 - 2 tablet PO Q4-6H PRN pain #30 04/14/23 Rx mg tablet tabs Patient hx anesthesia problems: none Family hx anesthesia problems: none Results Review: All pre-operative results and documents have been reviewed as part of the pre-operative evaluation. [facility] Past Medical History Medical History Aftercare following surgery (12/21/18) Benign essential hypertension Breast cancer screening Chronic insomnia Cough Gastro-esophageal reflux disease without esophagitis Generalized anxiety disorder Hypothyroidism, unspecified Impacted cerumen of left ear Obese Osteoporosis screening Pes anserine bursitis Primary osteoarthritis of left knee RLQ abdominal pain Stress at home Upper respiratory infection Surgical History Surgical History History of left mastoidectomy Hx of hysterectomy Presence of left artificial knee joint (12/21/18) Family History Family History Father Cerebrovascular accident, Onset Age: 75 Patient's father is Hypertension Sibling Cerebrovascular accident Mother Heart disease Thyroid disorder Social History Social History Social History: Life Partner Smoking status: Never smoker Second hand tobacco smoke exposure: No Additional smoking assessment
[2023-04-14] MEDS: LACTATED RINGERS 1,000 ML 30 ML IV CONT ×2 (09:30→11:58)
[2023-04-14] MEDS: TRANEXAMIC ACID 1,000MG/ISO100 1,000 MG/100 ML BAG 200 MG IVPB (09:34)
[2023-04-14] MEDS: ceFAZolin 2 GM/D5W 50 ML 2 GM/50 ML BAG IVPB ×2 (09:59→17:26)
[2023-04-14] MEDS: fentaNYL CITRATE INJ (*CRX) 100 MCG/2 ML VIAL 25 MCG IV PUSH ×8 (12:12→13:45)
--- NOTE | 2023-04-14 12:15 | W.PM.PROC2 ---
Procedure Note - Detailed Date of Procedure 04/14/23 Pre-op Diagnosis primary OA right hip Post-op Diagnosis Same Procedure Performed Right Total Hip Arthroplasty Surgeon Bruno Nickerson MD Corporate General Manager Nicole Sharif PA-C Anesthesia General Findings Good bone quality. Small stature. Description of Procedure The patient was given preoperative antibiotics. A general anesthetic was administered. The patient was carefully placed in the lateral decubitus position on the PEG board. The shoulders and hips were carefully positioned for component and leg length positioning reference. The hip was prepped and draped in the usual sterile fashion. A longitudinal incision was created over the posterior aspect of the greater trochanter. Careful dissection was brought down through the deep fascia with electrocautery. A minimally invasive optimized posterior approach to the hip was performed. The short external rotators and capsule were taken down in an L-shaped capsulotomy. The tissue was tagged for later repair using number 2 high strength suture. The femoral neck was measured and taken in situ. The femoral head was removed. The acetabulum was carefully exposed. The inferior capsule was released. The labrum was resected. The acetabulum was sequentially reamed to the intended cup size. The cup was impacted into position with excellent press-fit. Typical anatomic landmarks, including the bony contact points as well as the inferior transverse acetabular ligament were used to confirm cup positioning with preoperative templating. Attention was turned to the femur, which was carefully exposed. The hip was reamed and then broached sequentially. Excellent press-fit was obtained with the broach. The hip was trialed. Measurements were utilized, including the lesser trochanter as well as the center of the femoral head and the tip of the trochanter, and excellent assessment of the offset and leg lengths were confirmed. The real component was impacted into position. Trialing confirmed appropriate leg length and offset with soft tissue balancing as well apparent feel of the leg, both at the knee and the heel. Soft tissues were assessed using the the iliotibial band. Reduction of the posterior capsule and external rotators were also used as a secondary assessment. The hip was copiously irrigated with pulsatile lavage antibiotic solution periodically throughout the procedure. The real components were then assembled and reduced. The hip was stable throughout typical maneuvers, including extension, external rotation to 70 degrees, the position of sleep as well as flexion to 90 degrees with internal rotation past 45 degrees. The shake test confirmed stability without impingement. Osteophytes were removed as necessary. The short external rotators and capsule were repaired back to the posterior trochanter through drill holes. The deep fascia was repaired with running number 2 Quill suture, followed by 0 Stratafix suture and 2-0 Stratafix suture in the dermis. Steri-Strips were placed on the skin, followed by a sterile silver occlusive dressing. There were no complications. Meticulous hemostasis was maintained with the AquaMantys device. The patient was brought to the recovery room in stable condition. There were no complications. Physician assistant case manager, Nicole Sharif PA-C, required for surgery; including patient positioning, draping, tissue retraction, maintaining instrument position, hip dislocation/ relocation, wound closure, and dressing placement. Implants The Accolade II hip stem, 127 degree size 4 , was utilized with excellent press-fit. The 48 mm Trident II acetabular component was impacted with excellent press-fit stability. One supplemental screw was placed. The -2.5, 36 mm Biolox ceramic femoral head was utilized. Estimated Blood Loss 200 Drains No Packing No Pathology None sent Complications No immediate complications Condition Stable Dispos
--- NOTE | 2023-04-14 15:35 | ADMGEN ---
This patient, Silvana Santos, was admitted to [facility] Surg Room 313-01. Patient/family oriented to hospital policies and general routines including ID bracelet, bed and alarms, visiting hours, pain management, procedures, bathroom and other care routines, personal items, smoking policy, room service/diet, and visiting hours. Information on how to activate the Rapid Response Team has been discussed. Patient/Family are encouraged to report perceived risks to care and to ask questions if they do not understand what they are told or what they should do.
[2023-04-14] MEDS: SODIUM CHLORIDE 0.9% IV 1,000 ML 125 ML IV CONT (15:46)
[2023-04-14] MEDS: ASPIRIN 81 MG ENTERIC TABLET PO (17:18)
[2023-04-14] MEDS: MELOXICAM 7.5 MG TABLET PO (17:18)
[2023-04-14] MEDS: SENNA/DOCUSATE SODIUM TABLET 2 TAB PO (17:18)
[2023-04-14] MEDS: oxyCODONE HCL (*CRX) 5 MG TAB IR PO (17:19)
[2023-04-14] MEDS: oxyCODONE HCL (*CRX) 5 MG TAB IR 10 MG PO (21:12)
[2023-04-14] MEDS: ZOLPIDEM TARTRATE (*CRX) 5 MG TABLET 10 MG PO (21:12)
[2023-04-14] MEDS: LOSARTAN POTASSIUM 25 MG TABLET PO (21:13)
[2023-04-15] VITALS (11 sets, daily range): BP systolic 91–110; BP diastolic 33–58; PULSE 76–83; RESP 14–20; TEMP 36.4–37.2; O2SAT 95–98
--- NOTE | ~2023-04-15 | XR_ITS ---
Right Hip Technique: Portable AP view Clinical History: Status post hip arthroplasty Findings: Patient is status post right hip arthroplasty. Orthopedic hardware alignment appears anatom ic. No hardware complication is evident. Subcutaneous emphysema and swelling is likely postoperative in nature. No acute osseous fracture is seen. Impression: Status post total right hip arthroplasty, without evidence of hardware complication. Reviewed, dictated and finalized at location . 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
[2023-04-15] MEDS: ACETAMINOPHEN 500 MG TABLET 1000 MG PO ×4 (02:28→21:05)
[2023-04-15] MEDS: ceFAZolin 2 GM/D5W 50 ML 2 GM/50 ML BAG IVPB ×2 (02:29→08:32)
[2023-04-15] MEDS: oxyCODONE HCL (*CRX) 5 MG TAB IR PO ×2 (05:52→21:06)
[2023-04-15] MEDS: LEVOTHYROXINE SODIUM 100 MCG TABLET PO (05:52)
[2023-04-15 06:57] LABS: Basophils Percent Auto 0.2 % (0.2-1.2); Hemoglobin 10.7 g/dL (12.0-15.0); Immature Granulocyte Absolute 0.03 K/mm3 (0.00-0.031); Immature Granulocyte Percent A 0.2 % (0-0.5); Lymphocytes Absolute Auto 1.51 K/mm3 (0.9-3.2); Lymphocytes Percent Auto 12.3 % (18.3-44.2); Mean Corpuscular HGB Conc 33.4 g/dl (32-36); Mean Corpuscular Hemoglobin 30.5 pg (26-34); Mean Corpuscular Volume 91.2 fl (80-100); Mean Platelet Volume 9.5 fl (7.4-10.4); Monocytes Absolute Auto 1.1 K/mm3 (0.1-0.6); Monocytes Percent Auto 9.1 % (2.6-8.5); Neutrophils Absolute Auto 9.6 K/mm3 (1.3-6.7); Neutrophils Percent Auto 78.2 % (45.5-73.1); Platelet Count Result 266 k/mm3 (150-375); Red Blood Count 3.51 M/mm3 (4.2-5.4); White Blood Count 12.3 K/mm3 (4.5-10.0)
[2023-04-15 07:13] LABS: Anion Gap 7 mmol/L (8-16); Blood Urea Nitrogen 13 mg/dL (7-17); Calcium 8.8 mg/dL (8.4-10.2); Carbon Dioxide 26 mmol/L (22-30); Chloride 102 mmol/L (98-107); Estimated CRCL calculation 58 ml/min; Estimated Glomerular Filt Rate > 60; Glucose 119 mg/dL (65-110); Sodium 135 mmol/L (137-145)
[2023-04-15] MEDS: SENNA/DOCUSATE SODIUM TABLET 2 TAB PO ×2 (08:29→16:30)
[2023-04-15] MEDS: MELOXICAM 7.5 MG TABLET PO ×2 (08:29→16:30)
[2023-04-15] MEDS: ASPIRIN 81 MG ENTERIC TABLET PO ×2 (08:29→16:30)
[2023-04-15] MEDS: polyethylene glycoL 3350 17 GM POWD.PACK PO (08:29)
[2023-04-15] MEDS: ROSUVASTATIN 5 MG TABLET PO (08:30)
[2023-04-15] MEDS: SERTRALINE HCL 50 MG TABLET 100 MG PO (08:30)
--- NOTE | 2023-04-15 08:49 | PC.NURSE ---
This RN contacted AMADO Nichols at Dr. Tamayo office about othostatic blood pressures while working with Physical Therapy. PA Orders 500 ml Bolus, recheck BP, call back with results.
[2023-04-15] MEDS: SODIUM CHLORIDE 0.9% IV 500 ML 999 ML IV CONT (08:58)
--- NOTE | 2023-04-15 09:22 | PM.PNORT ---
Progress Note: A&P Assessment and Plan (1) Status post total hip replacement, right: Code(s): Z96.641 - Presence of right artificial hip joint Status: Acute (2) Orthostatic hypotension: Code(s): I95.1 - Orthostatic hypotension Status: Acute (3) Postoperative anemia: Code(s): D64.9 - Anemia, unspecified Status: Acute Plan Postop day 1: Total hip arthroplasty. Patient tolerated procedure well. Patient complains of feeling light headed. She did have an estimated 400ml blood loss. Hgb 10.7. I started her on Iron while in the hospital. Recommend taking an iron supplement at discharge. She does have orthostatic hypotension. Gave a bolus of fluid and B/P did improve. Encourage lots of fluids. Will keep patient another day to monitor orthostatic hypotension. Reviewed findings with Dr. Nickerson who agrees with care plan. Subjective Subjective Date/Time Seen: 04/15/23 09:22 Interval history: Resting comfortably at the time of my visit. Patient complains of feeling a little off and light headed today. She did loose some blood during surgery. She complains of dizziness when standing. Moderate pain. No numbness or tingling. No SOB, CP, ABD pain, N/V. No other complaints. Review of Systems Review of Systems: All systems reviewed & are unremarkable except as noted in HPI and below Exam Narrative: Overweight 67 y/o female. Resting comfortably in bed. Patient is a little pale looking today. No acute distress. A&O x3. Wearing compression socks bilaterally. Dressing intact with no drainage. Mild swelling. No ecchymosis. No erythema. No hematoma. Range of motion limited. Weak and unable to extend leg. Calf nontender. Neurologic status intact. No varicosities. Distal pulses palpable. Objective Data Vital Signs Vital Signs: Vital Signs - 24 hr 04/14/23 09:25 04/14/23 11:58 04/14/23 12:25 Temperature 98.9 F 97.5 F L Pulse Rate 70 60 77 Respiratory Rate 16 12 14 Blood Pressure 133/57 L 133/49 L 110/59 L Pulse Oximetry 100 100 100 Oxygen Delivery Room Air Simple Face Mask Simple Face Mask Oxygen Flow Rate 6 6 04/14/23 12:40 04/14/23 12:45 04/14/23 12:55 Temperature Pulse Rate 78 78 Respiratory Rate 14 16 Blood Pressure 122/58 L 123/55 L Pulse Oximetry 99 95 Oxygen Delivery Simple Face Mask Room Air Room Air Oxygen Flow Rate 6 04/14/23 13:10 04/14/23 12:10 04/14/23 13:40 Temperature Pulse Rate 75 77 76 Respiratory Rate 14 18 14 Blood Pressure 122/48 L 132/54 L 127/52 L Pulse Oximetry 92 100 96 Oxygen Delivery Room Air Simple Face Mask Room Air Oxygen Flow Rate 6 04/14/23 14:10 04/14/23 14:40 04/14/23 14:55 Temperature 97.1 F L 97.7 F 97.7 F Pulse Rate 72 74 78 Respiratory Rate 12 20 18 Blood Pressure 134/50 L 96/49 L 117/50 L Pulse Oximetry 93 98 100 Oxygen Delivery Room Air Oxygen Flow Rate 04/14/23 15:25 04/14/23 20:07 04/15/23 00:19 Temperature 97.7 F 97.8 F 97.5 F L Pulse Rate 105 H 79 83 Respiratory Rate 20 16 16 Blood Pressure 122/48 L 99/59 L 96/41 L Pulse Oximetry 100 94 98 Oxygen Delivery Oxygen Flow Rate 04/15/23 04:47 04/15/23 08:09 04/15/23 08:05 Temperature 98.9 F 98.1 F Pulse Rate 81 81 Respiratory Rate 16 20 Blood Pressure 110/52 L 91/50 L Pulse Oximetry 96 96 Oxygen Delivery Room Air Oxygen Flow Rate 04/15/23 08:30 04/15/23 08:35 04/15/23 08:40 Temperature Pulse Rate Respiratory Rate Blood Pressure 93/41 L 94/44 L 104/47 L Pulse Oximetry Oxygen Delivery Oxygen Flow Rate 04/15/23 08:45 Temperature Pulse Rate Respiratory Rate Blood Pressure 97/33 L Pulse Oximetry Oxygen Delivery Oxygen Flow Rate Intake/Output Intake/Output: Intake & Output 04/12/23 04/13/23 04/14/23 04/15/23 23:59 23:59 23:59 23:59 Intake Total 2250 600 Balance 2250 600 Meds/Results Medications: Active Medications Generic Name Dose Route Start Last Admin Tr
[2023-04-15] MEDS: POLYSACCHARIDE IRON COMPLEX 150 MG CAPSULE PO (09:29)
[2023-04-15] MEDS: ONDANSETRON INJ 4 MG/2 ML VIAL IV PUSH (09:29)
--- NOTE | 2023-04-15 14:39 | P.PNAN_ITS ---
Anes - Prog Note Post-Op Date/Time: 04/15/23 14:39 Cardiovascular status: other (soft BPs) Respiratory status: normal Airway patency: baseline Mental status: baseline Post-Op hydration status: normal Vital Signs: Last Vital Signs Temp 36.7 C 04/15/23 12:05 Pulse 76 04/15/23 12:05 Resp 20 04/15/23 12:05 BP 92/43 L 04/15/23 12:05 Pulse Ox 95 04/15/23 12:05 O2 Del Method Room Air 04/15/23 08:30 O2 Flow Rate 6 04/14/23 12:40 Pain Score (VAS): 05/23 I/O: Intake & Output 04/14/23 04/15/23 04/15/23 23:59 07:59 15:59 Intake Total 1600 600 238 Balance 1600 600 238 Laboratory Tests 04/15/23 06:19 04/15/23 06:19 04/15/23 06:19 WBC 12.3 H RBC 3.51 L Hgb 10.7 L D Hct 32.0 L MCV 91.2 MCH 30.5 MCHC 33.4 RDW 12.0 Plt Count 266 MPV 9.5 Immature Gran % (Auto) 0.2 Neut % (Auto) 78.2 H Lymph % (Auto) 12.3 L Garza % (Auto) 9.1 H Eos % (Auto) 0.0 Baso % (Auto) 0.2 Lymph # (Auto) 1.51 Garza # (Auto) 1.1 H Eos # (Auto) 0.0 Baso # (Auto) 0.0 Abs Immat Gran (auto) 0.03 Absolute Neuts (auto) 9.6 H Absolute Nucleated RBC 0.0 Nucleated RBC % 0.0 Sodium 135 L Potassium 4.0 Chloride 102 Carbon Dioxide 26 Anion Gap 7 L BUN 13 Creatinine 0.70 Estim Creat Clear Calc 58 Estimated GFR > 60 Glucose 119 H Calcium 8.8 Post-procedural complaints: none Patient Feedback: Patient satisfied with anesthetic care.
[2023-04-15] MEDS: oxyCODONE HCL (*CRX) 5 MG TAB IR 10 MG PO (16:29)
[2023-04-15] MEDS: ZOLPIDEM TARTRATE (*CRX) 5 MG TABLET 10 MG PO (21:06)
[2023-04-15] MEDS: FAMOTIDINE 20 MG TABLET PO (21:06)
[2023-04-16] VITALS (7 sets, daily range): BP systolic 99–114; BP diastolic 34–51; PULSE 71–97; RESP 14–20; TEMP 36.5–37.3; O2SAT 94–99
[2023-04-16] MEDS: ACETAMINOPHEN 500 MG TABLET 1000 MG PO ×4 (04:03→20:52)
[2023-04-16] MEDS: LEVOTHYROXINE SODIUM 100 MCG TABLET PO (06:12)
[2023-04-16] MEDS: oxyCODONE HCL (*CRX) 5 MG TAB IR PO (06:17)
[2023-04-16 07:29] LABS: Basophils Absolute Auto 0.1 K/mm3 (0.0-0.1); Basophils Percent Auto 0.5 % (0.2-1.2); Eosinophils Absolute Auto 0.2 K/mm3 (0-0.3); Eosinophils Percent Auto 2.1 % (0-4.4); Hematocrit 31.6 % (37.0-47.0); Hemoglobin 10.2 g/dL (12.0-15.0); Immature Granulocyte Absolute 0.04 K/mm3 (0.00-0.031); Immature Granulocyte Percent A 0.4 % (0-0.5); Lymphocytes Absolute Auto 1.85 K/mm3 (0.9-3.2); Lymphocytes Percent Auto 19.3 % (18.3-44.2); Mean Corpuscular HGB Conc 32.3 g/dl (32-36); Mean Corpuscular Hemoglobin 30.4 pg (26-34); Mean Platelet Volume 9.4 fl (7.4-10.4); Monocytes Absolute Auto 0.9 K/mm3 (0.1-0.6); Monocytes Percent Auto 9.8 % (2.6-8.5); Neutrophils Absolute Auto 6.5 K/mm3 (1.3-6.7); Neutrophils Percent Auto 67.9 % (45.5-73.1); Platelet Count Result 236 k/mm3 (150-375); Red Blood Count 3.36 M/mm3 (4.2-5.4); White Blood Count 9.6 K/mm3 (4.5-10.0)
[2023-04-16 07:59] LABS: Anion Gap 5 mmol/L (8-16); Blood Urea Nitrogen 14 mg/dL (7-17); Calcium 8.7 mg/dL (8.4-10.2); Carbon Dioxide 27 mmol/L (22-30); Chloride 106 mmol/L (98-107); Estimated CRCL calculation 58 ml/min; Estimated Glomerular Filt Rate > 60; Glucose 93 mg/dL (65-110); Potassium 4.3 mmol/L (3.4-5.0); Sodium 138 mmol/L (137-145)
--- NOTE | 2023-04-16 08:48 | PCPTNOTE ---
Attempted to see patient for PT, however patient was eating breakfast.
[2023-04-16] MEDS: ASPIRIN 81 MG ENTERIC TABLET PO ×2 (10:13→16:44)
[2023-04-16] MEDS: SENNA/DOCUSATE SODIUM TABLET 2 TAB PO ×2 (10:13→16:44)
[2023-04-16] MEDS: ROSUVASTATIN 5 MG TABLET PO (10:13)
[2023-04-16] MEDS: POLYSACCHARIDE IRON COMPLEX 150 MG CAPSULE PO (10:14)
[2023-04-16] MEDS: MELOXICAM 7.5 MG TABLET PO ×2 (10:14→16:44)
[2023-04-16] MEDS: SERTRALINE HCL 50 MG TABLET 100 MG PO (10:14)
--- NOTE | 2023-04-16 10:30 | PCOTNOTE ---
Attempted to see Patient for OT treatment session this A.M. Patient having increased nausea/dizziness and unable to participate in activity at this time. Therapist to come back at a later time to attempt again
--- NOTE | 2023-04-16 14:02 | PM.PNORT ---
Progress Note: A&P Assessment and Plan (1) Status post total hip replacement, right: Code(s): Z96.641 - Presence of right artificial hip joint Status: Acute (2) Orthostatic hypotension: Code(s): I95.1 - Orthostatic hypotension Status: Acute (3) Postoperative anemia: Code(s): D64.9 - Anemia, unspecified Status: Acute Plan Postop day 2: Total hip arthroplasty. Patient continues to have dizziness and nausea after surgery. She did ambulate better today. Per Occupational therapy, patient would benefit from another day of therapy due to her dizziness and nausea with ambulating. She still has soft blood pressure readings however orthostatic hypotension improving today. Hgb 10.4 today. No hematoma. Iron supplement ordered and she will take an over the counter iron supplement at home. She does look pale still today. Continue encouraging fluids. Spoke with Dr. Nickerson who agrees with care plan. Hospitalist consulted today due to low B/P. Plan for discharge tomorrow if patient continues to improve. Subjective Subjective Date/Time Seen: 04/16/23 14:02 Interval history: Patient still complaining of nausea and dizziness when walking. She has been able to ambulate better today. Per patient's nurse, OT believes she would benefit from one more day of therapy before returning home. No other new complaints. No CP, SOB, ABD pain. Review of Systems Review of Systems: All systems reviewed & are unremarkable except as noted in HPI and below Exam Narrative: Overweight 67 y/o female. Resting comfortably in bed. Patient is a little pale looking today. No acute distress. A&O x3. Wearing compression socks bilaterally. Dressing intact with no drainage. Mild swelling. No ecchymosis. No erythema. No hematoma. Range of motion limited. Weak and unable to extend leg. Calf nontender. Neurologic status intact. No varicosities. Distal pulses palpable. Objective Data Vital Signs Vital Signs: Vital Signs - 24 hr 04/15/23 16:05 04/15/23 20:00 04/16/23 00:00 Temperature 97.7 F 98.1 F 97.8 F Pulse Rate 82 80 97 Respiratory Rate 20 14 14 Blood Pressure 110/42 L 99/41 L 99/48 L Pulse Oximetry 97 96 98 04/16/23 03:35 04/16/23 08:00 04/16/23 11:09 Temperature 99.1 F 97.7 F Pulse Rate 92 75 77 Respiratory Rate 18 18 Blood Pressure 110/45 L 101/45 L 108/44 L Pulse Oximetry 94 96 04/16/23 11:09 04/16/23 11:09 04/16/23 12:00 Temperature 97.8 F Pulse Rate 81 79 75 Respiratory Rate 20 Blood Pressure 112/49 L 112/51 L 114/46 L Pulse Oximetry 99 Intake/Output Intake/Output: Intake & Output 04/13/23 04/14/23 04/15/23 04/16/23 23:59 23:59 23:59 23:59 Intake Total 2250 1508 118 Output Total 0 Balance 2250 1508 118 Meds/Results Medications: Active Medications Generic Name Dose Route Start Last Admin Trade Name Freq PRN Reason Stop Dose Admin Acetaminophen 1,000 mg 04/14/23 15:00 04/16/23 10:13 Acetaminophen 500 Mg Tablet PO 1,000 mg Q6H VITO Administration Alprazolam 0.25 mg 04/14/23 14:20 Alprazolam (*Crx) 0.25 Mg Tablet PO BID PRN Anxiety Aspirin 81 mg 04/14/23 17:00 04/16/23 10:13 Aspirin 81 Mg Enteric Tablet PO 81 mg BID VITO Administration Cyclobenzaprine HCl 10 mg 04/14/23 14:20 Cyclobenzaprine Hcl 10 Mg Tablet PO Q8H PRN Spasms Diphenhydramine HCl 25 mg 04/14/23 14:20 Diphenhydramine Hcl Inj 50 Mg/Ml Vial IV PUSH Q6H PRN Itching Famotidine 20 mg 04/15/23 21:00 04/15/23 21:06 Famotidine 20 Mg Tablet PO 20 mg HS VITO Administration Gabapentin 600 mg 04/14/23 14:20 Gabapentin 300 Mg Capsule PO HS PRN Pain Levothyroxine Sodium 100 mcg 04/15/23 06:30 04/16/23 06:12 Levothyroxine Sodium 100 Mcg Tablet PO 100 mcg DAILY@0630 VITO Administration Loratadine 10 mg 04/14/23 14:20 Loratadine 10 Mg Tablet PO DAILY PRN Congestion Losartan Potass
[2023-04-16] MEDS: FAMOTIDINE 20 MG TABLET PO (20:52)
[2023-04-16] MEDS: ZOLPIDEM TARTRATE (*CRX) 5 MG TABLET 10 MG PO (20:52)
[2023-04-17 00:24] VITALS: BP 103/49; PULSE 75; RESP 16; TEMP 36.5; O2SAT 100
[2023-04-17] MEDS: ACETAMINOPHEN 500 MG TABLET 1000 MG PO ×2 (03:52→08:27)
[2023-04-17 04:31] VITALS: BP 113/51; PULSE 78; RESP 16; TEMP 36.6; O2SAT 97
[2023-04-17] MEDS: LEVOTHYROXINE SODIUM 100 MCG TABLET PO (05:36)
[2023-04-17 08:00] VITALS: BP 113/49; PULSE 84; RESP 16; TEMP 36.4; O2SAT 98
[2023-04-17] MEDS: POLYSACCHARIDE IRON COMPLEX 150 MG CAPSULE PO (08:26)
[2023-04-17] MEDS: ASPIRIN 81 MG ENTERIC TABLET PO (08:26)
[2023-04-17] MEDS: ROSUVASTATIN 5 MG TABLET PO (08:27)
[2023-04-17] MEDS: MELOXICAM 7.5 MG TABLET PO (08:27)
[2023-04-17] MEDS: SERTRALINE HCL 50 MG TABLET 100 MG PO (08:27)
[2023-04-17 09:31] LABS: Hematocrit 33.6 % (37.0-47.0); Mean Corpuscular HGB Conc 32.7 g/dl (32-36); Mean Corpuscular Hemoglobin 30.1 pg (26-34); Mean Corpuscular Volume 92.1 fl (80-100); Mean Platelet Volume 9.5 fl (7.4-10.4); Platelet Count Result 309 k/mm3 (150-375); Red Blood Count 3.65 M/mm3 (4.2-5.4); Red Cell Distribution Width 11.8 % (11.5-14.5); White Blood Count 10.4 K/mm3 (4.5-10.0)
[2023-04-17 10:23] LABS: Iron 15 ug/dL (37-170)
[2023-04-17 10:25] LABS: Anion Gap 7 mmol/L (8-16); Blood Urea Nitrogen 13 mg/dL (7-17); Calcium 9.3 mg/dL (8.4-10.2); Carbon Dioxide 26 mmol/L (22-30); Chloride 104 mmol/L (98-107); Estimated CRCL calculation 67 ml/min; Estimated Glomerular Filt Rate > 60; Glucose 104 mg/dL (65-110); Potassium 4.1 mmol/L (3.4-5.0); Sodium 137 mmol/L (137-145)
[2023-04-17 10:35] LABS: Percent Iron Saturation 8 % (20-50)
--- NOTE | 2023-04-17 10:36 | PM.DS ---
DS: Admitting Diagnosis Discharge Date 04/17/22 Admitting Diagnosis OA Right hip DS: Discharge Diagnosis Discharge Diagnosis (1) Status post total hip replacement, right: Code(s): Z96.641 - Presence of right artificial hip joint Status: Acute (2) Orthostatic hypotension: Code(s): I95.1 - Orthostatic hypotension Status: Acute (3) Postoperative anemia: Code(s): D64.9 - Anemia, unspecified Status: Acute Plan Postop day 1: Right Total hip arthroplasty. Patient did have some post operative anemia, nausea, and orthostatic hypotension and required an extended hospital stay. She is feeling much better today. Able to work with formal physical therapy and OT without nausea. She will take an iron supplement for the anemia. Pain manageable with pain medication. No numbness or tingling. We had a lengthy discussion regarding postoperative wound care, limitations, expectations, and exercises. Patient shows good understanding. Patient has had initial physical therapy and is tolerating it well. DVT prophylaxis: 81 mg baby aspirin b.i.d. for 14 days. Short frequent walks. Pain medication: Percocet. Ibuprofen. Patient has followup appointment with Dr. Nickerson in 3 weeks DS: Summary Hospital Course Reason for hospitalization: Total hip arthroplasty Hospital Course: Required extended stay due to orthostatic hypotension, nausea and postoperative anemia. Has had initial PT/OT and made good progress. Status at Discharge Functional status at discharge: uses cane/walker Overall status at discharge: patient is progressing back to baseline Time Spent with Patient Time attestation: Total time spent providing and/or coordinating discharge services: Exam Narrative: Overweight 67 y/o female. Resting comfortably in bed. Paleness improving slightly. No acute distress. A&O x3. Wearing compression socks bilaterally. Dressing intact with no drainage. Mild swelling. Mild ecchymosis. Mild erythema. No warmth or signs of infection. Possible small hematoma. Soft. Range of motion limited. Weak but able to perform straight leg raise today. Calf nontender. Neurologic status intact. No varicosities. Distal pulses palpable. DS: Data Data Completed and Pending Labs on day of discharge: Labs from last 24 hours 04/17/23 09:17 WBC 10.4 H RBC 3.65 L Hgb 11.0 L Hct 33.6 L MCV 92.1 MCH 30.1 MCHC 32.7 RDW 11.8 Plt Count 309 MPV 9.5 Sodium 137 Potassium 4.1 Chloride 104 Carbon Dioxide 26 Anion Gap 7 L BUN 13 Creatinine 0.60 L Estim Creat Clear Calc 67 Estimated GFR > 60 Glucose 104 Calcium 9.3 Iron 15 L TIBC 188 L % Saturation Pending Vitamin B12 Pending Folate Pending Discharge Plan Discharge Attending physician on discharge: Bruno Nickerson Discharging Clinician: Nicole Sharif Anticipated Discharge Date/Time: 04/17/23 10:35 Patient Disposition: Home, Self-Care Activity: may shower Diet: regular Wound Care Instructions: follow printed instructions Discharge Instructions: See green instruction sheets Add over the counter iron supplement at discharge. Care Coordination: Patient to have [facility] for PT/OT eval and treat, and [facility] [facility]. Their phone number is [phone] if you have any questions. They will contact you to schedule their first visit. Patient Instructions: Antibiotic Form, Precautions after Total Joint Replacement Surgery (DC) Stand Alone Forms: General Discharge Information, General Discharge Instructions Follow-up/Referrals: Nicole Sharif PA [Physician [facility]] - Discharge Medications: New aspirin 81 mg tablet,delayed release (DR/EC) 81 mg PO BID 14 Days Qty: 28 0RF meloxicam 15 mg tablet 15 mg PO DAILY Qty: 30 0RF Rx Instructions: Cut in half. Take 1/2 in morning and 1/2 at night. Take with food. Stop if stomach upset. oxycodone-acetami
[2023-04-17] MEDS: oxyCODONE HCL (*CRX) 5 MG TAB IR PO (11:30)
[2023-04-17 11:52] LABS: Folic Acid 15.4 ng/mL (2.76->20)
== END 2023-04-17 12:30 | disposition home or self-care (01) | DRG 470 ==
LOC: ANHSURGERY 05-18 10:13 → ANH3MEDSUR 05-18 10:13
PROVIDERS: Nurse Practitioner; Admitting Provider Orthopaedic Surgery; PCP Family Medicine; Visit Provider Physician Assistant Surgical
PROC: 0SR904A Replacement of Right Hip Joint with Ceramic on Polyethylene Synthetic Substitute, Uncemented, Open Approach (ICD-10-PCS; CPT 27130; principal; 2023-04-14 10:30)
DX: M16.11 Unilateral primary osteoarthritis, right hip (principal); D62 Acute posthemorrhagic anemia; I95.81 Postprocedural hypotension; K21.9 Gastro-esophageal reflux disease without esophagitis; F41.1 Generalized anxiety disorder; E03.9 Hypothyroidism, unspecified; M17.12 Unilateral primary osteoarthritis, left knee; Z96.652 Presence of left artificial knee joint
CPT/HCPCS: 36415; 73502; 80048; 82607; 82746; 83540; 83550; 85025; 85027; 86850; 86900; 86901; 97110; 97116; 97161; 97165; 97530; 97535; A9270; C1776; G0378; J0171; J0690; J1100; J1170; J1885; J2250; J2270; J2405; J2704; J2795; J3010; J7030; J7040; J7120

== ENCOUNTER 2023-09-02 16:27 | Emergency (ER) | payer MEDICARE, SELFPAY ==
--- NOTE | ~2023-09-02 | XR_ITS ---
EXAMINATION: [id number] DATE: 09/02/2023 17:09 INDICATION: Anterior right rib pain. Fall. TECHNIQUE: A frontal view of the chest and 2 views on 3 radiographs of the right ribs were obtained. COMPARISON: Chest 2 views 07/02/2021 FINDINGS: Calcified left lung nodules and calcified left hilar lymph nodes are consistent with old gr anulomatous disease. No pleural effusion or pneumothorax. The heart size is normal. IMPRESSION: 1. No rib fracture. Reviewed, dictated and finalized at location A. IMPRESSION: 1. No rib fracture.
[2023-09-02 16:39] VITALS: BP 122/62; PULSE 74; RESP 14; TEMP 36.5; O2SAT 99
[2023-09-02 16:43] VITALS: BP 122/62; PULSE 74; RESP 14; TEMP 36.5; O2SAT 99
--- NOTE | 2023-09-02 17:22 | ED.GENADULT ---
HPI - General Adult General Chief complaint: Fall Stated complaint: FALL/R RIB PAIN Time Seen by Provider: 09/02/23 16:57 Source: patient, RN notes reviewed and old records reviewed Mode of arrival: ambulatory Limitations: no limitations History of Present Illness HPI narrative: 68-year-old female to [facility] for complaint right anterior rib pain after falling at home this morning in her backyard while gardening. Patient she slipped on wet surface with right foot and fell toward her right side. patient endorses history of right hip replacement earlier this year and states during fall she was concerned about landing on her hip and ended up falling on to her right anterior ribs. Patient states the pain is worse with left ear and deep breathing. Patient has attempted to treat at home with ice and toym-rhq-lriwduq medication with little relief. Patient also endorses history of osteoporosis. Patient denies chest pain, shortness of breath, abdominal pain. Patient is calm and pleasant exam room. Respirations even and nonlabored. No acute distress Related Data Home Medications Medication Instructions Recorded Confirmed calcium citrate 1,200 mg DAILY 03/18/23 09/02/23 cholecalciferol (vitamin D3) 10 20 mcg PO DAILY 03/18/23 09/02/23 mcg (400 unit) capsule sertraline 100 mg tablet 150 mg PO DAILY 07/13/23 09/02/23 Allergies Allergy/AdvReac Type Severity Reaction Status Date / Time ciprofloxacin Allergy Severe blisters Verified 09/02/23 16:39 codeine Allergy Mild itching Verified 09/02/23 16:39 latex Allergy Unknown Rash Verified 09/02/23 16:39 Review of Systems Review of Systems: All systems reviewed & are unremarkable except as noted in HPI and below Constitutional: Constitutional: Reports no additional constitutional complaints Eyes: Eyes: Reports no additional eye complaints ENT: Reports system reviewed and no additional complaints, except as documented Cardiovascular: Cardiovascular: Reports no additional cardiovascular complaints, Denies chest pain and Denies dyspnea Respiratory: Respiratory: Reports as per HPI, Denies cough, Denies hemoptysis, Reports pain on inspiration ( on right side with deep inspiration) and Denies dyspnea Musculoskeletal: Musculoskeletal: Reports as per HPI and Reports other ( right anterior rib pain) Neurologic: Reports system reviewed and no additional complaints, except as documented Psychiatric: Psychiatric: Reports no additional psychiatric complaints PMFSH Past Medical History Medical History Aftercare following surgery (12/21/18) Atypical chest pain Benign essential hypertension Breast cancer screening Chronic insomnia Cough Cough Croup, spasmodic Difficulty swallowing Gastro-esophageal reflux disease without esophagitis Generalized anxiety disorder Hypothyroidism, unspecified Impacted cerumen of left ear Obese Osteoporosis screening Pes anserine bursitis Primary osteoarthritis of left knee RLQ abdominal pain Stress at home Upper respiratory infection Surgical History Surgical History History of left mastoidectomy History of total right hip arthroplasty (~04/14/23) Hx of hysterectomy Presence of left artificial knee joint (12/21/18) Family History Family History Father Cerebrovascular accident, Onset Age: 75 Patient's father is Hypertension Sibling Cerebrovascular accident Mother Heart disease Thyroid disorder Social History Social History Social History: Life Partner Smoking status: Never smoker Second hand tobacco smoke exposure: No Additional smoking assessment comments: PT DENIES ALL FORMS OF TOBACCO USE Alcohol intake: never Substance use: never Substance use type:
== END 2023-09-02 17:50 | disposition home or self-care (01) ==
PROVIDERS: Emergency Provider Nurse Practitioner Family; PCP Family Medicine
DX: S20.211A Contusion of right front wall of thorax, initial encounter (principal); W01.0XXA Fall on same level from slipping, tripping and stumbling without subsequent striking against object, initial encounter; Y93.H2 Activity, gardening and landscaping; Z96.643 Presence of artificial hip joint, bilateral; M81.0 Age-related osteoporosis without current pathological fracture; I10 Essential (primary) hypertension; K21.9 Gastro-esophageal reflux disease without esophagitis; E03.9 Hypothyroidism, unspecified; M17.12 Unilateral primary osteoarthritis, left knee
CPT/HCPCS: 71101; 99213; G0463

== ENCOUNTER 2023-11-05 14:38 | Outpatient (CLI) | payer MEDICARE, SELFPAY ==
--- NOTE | ~2023-11-05 | MM_ITS ---
EXAMINATION: MM screening [facility] BI w sabrina HISTORY: Screening TECHNIQUE: Craniocaudal and mediolateral oblique 3-D tomosynthesis images were obtained and synthetic 2-D images were generated. CAD analysis was submitted and interpreted. COMPARISON: Comparison to multiple prior studies sequentially, with oldest reviewed study dated 08/21. BREAST PARENCHYMAL COMPOSITION: Dense: The breasts are heterogeneously dense, which may obscure small masses FINDINGS: There is no evidence of suspicious mass, calcification, or architectural distortion to sugg est malignancy in either breast. There has been no suspicious interval change. IMPRESSION: 1. No mammographic evidence of malignancy. 2. Recommend routine screening mammography in one year. BI-RADS Category 1: Negative Reviewed, dictated and finalized at location B.
== END 2023-11-05 14:39 | disposition home or self-care (01) ==
LOC: ANHIMG 14:39
PROVIDERS: PCP Family Medicine; Visit Provider Family Medicine
DX: Z12.31 Encounter for screening mammogram for malignant neoplasm of breast (principal)
CPT/HCPCS: 77063; 77067

== ENCOUNTER 2023-11-06 14:20 | Outpatient (CLI) | payer MEDICARE, SELFPAY ==
--- NOTE | ~2023-11-06 | CT_ITS ---
EXAMINATION: CT chest abdomen pelvis wo con DATE: 11/06/2023 14:49 INDICATION: Abnormal weight loss. TECHNIQUE: Computed tomography (CT) of the chest, abdomen, and pelvis was performed without intraveno us contrast. Automated exposure control and iterative reconstruction technique were employed. The dos e-length product was 504.56 mGy-cm. COMPARISON: CT abdomen and pelvis 11/29/2013 FINDINGS: CHEST CT: There is mild atelectasis bilaterally. There is mild scarring in paraspinal right lower lobe. A calci fied left lung nodule and calcified left hilar lymph nodes are consistent with old granulomatous dise ase. No pleural effusion. The heart size is normal. No pericardial effusion. There is severe thoracic spondylosis. ABDOMEN/PELVIS CT: The liver is normal. The gallbladder is absent. Calcifications in the spleen are consistent with old granulomatous disease. The pancreas, adrenal glands, and kidneys are normal. There is no urolithiasis . There is diverticulosis of the colon without evidence of diverticulitis. The appendix is not visual ized. There are no pathologically enlarged lymph nodes. There is no free intraperitoneal fluid. There is a total right hip arthroplasty. There are chronic bilateral L5 pars defects with 6 mm anterolisth esis of L5 on S1. There is severe lumbar spondylosis. IMPRESSION: 1. No evidence of malignancy. Reviewed, dictated and finalized at location A.
== END 2023-11-06 14:21 | disposition home or self-care (01) ==
PROVIDERS: PCP Family Medicine; Visit Provider Physician Assistant
DX: R63.4 Abnormal weight loss (principal)
CPT/HCPCS: 71250; 74176

== ENCOUNTER 2024-06-26 15:03 | Emergency (ER) | payer MEDICARE, SELFPAY ==
--- NOTE | 2024-06-26 15:04 | ED.EAR ---
HPI - Ear Problem General Chief complaint: Ear Stated complaint: Ear Pain Time Seen by Provider: 06/26/24 15:03 Source: patient Mode of arrival: ambulatory Limitations: no limitations History of Present Illness HPI Narrative: Patient is a 69-year-old female that presents with tenderness behind left ear for 2 days. 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 Patient has tried to use ice, Tylenol ibuprofen with no relief. Reports swelling but denies any fever, chills, nausea, vomiting, diarrhea. Denies any upper respiratory symptoms. MD Complaint: ear pain Related Data Home Medications ?Medication ?Instructions ?Recorded ?Confirmed ?Last Taken ?Type calcium citrate 1,200 mg DAILY 03/18/23 05/17/24 04/07/23 History cholecalciferol (vitamin D3) 10 20 mcg PO DAILY 03/18/23 05/17/24 04/07/23 History mcg (400 unit) capsule Allergies Allergy/AdvReac Type Severity Reaction Status Date / Time ciprofloxacin Allergy Severe blisters Verified 06/26/24 15:14 codeine Allergy Mild itching Verified 06/26/24 15:14 latex Allergy Unknown Rash Verified 06/26/24 15:14 mannitol (From Reclast) AdvReac Intermediate Fever Verified 06/26/24 15:14 water for injection,sterile AdvReac Intermediate Fever Verified 06/26/24 15:14 (From Reclast) zoledronic acid (From AdvReac Intermediate Fever Verified 06/26/24 15:14 Reclast) Review of Systems Review of Systems: All systems reviewed & are unremarkable except as noted in HPI and below Constitutional: Constitutional: Denies body ache(s), Denies chills, Denies fever(s), Denies headache(s) and Denies malaise Eyes: Eyes: Denies blurry vision, Denies eye discharge and Denies irritation ENT: Reports otalgia, Denies headache(s), Denies nasal congestion, Denies nasal discharge and Denies sore throat Cardiovascular: Cardiovascular: Denies chest pain, Denies edema, Denies palpitations and Denies dyspnea on exertion Respiratory: Respiratory: Denies cough and Denies dyspnea on exertion Gastrointestinal: Gastrointestinal: Denies abdominal pain, Denies diarrhea, Denies nausea and Denies vomiting Musculoskeletal: Musculoskeletal: Denies back pain, Denies arthralgias and Denies muscle weakness Integumentary/Breasts: Skin/Breast: Denies pruritus and Denies rash Neurologic: Denies headache(s) Psychiatric: Psychiatric: Reports no additional psychiatric complaints Endocrine: Endocrine: Denies palpitations PMFSH Past Medical History Medical History Croup, spasmodic Difficulty swallowing Cough Atypical chest pain Pes anserine bursitis Impacted cerumen of left ear Obese Cough Upper respiratory infection RLQ abdominal pain Osteoporosis screening Breast cancer screening Aftercare following surgery (12/21/18) Benign essential hypertension Chronic insomnia Gastro-esophageal reflux disease without esophagitis Generalized anxiety disorder Hypothyroidism, unspecified Primary osteoarthritis of left knee Stress at home Surgical History Surgical History History of total right hip arthroplasty (~04/14/23) History of left mastoidectomy Hx of hysterectomy Presence of left artificial knee joint (12/21/18) Family History Family History Father Cerebrovascular accident, Onset Age: 75 Patient's father is Hypertension Sibling Cerebrovascular accident Mother Heart disease Thyroid disorder Social History Social History Social History: Life Partner Smoking status: Never smoker Second hand tobacco smoke exposure: No Additional smoking assessment comments: PT DENIES ALL FORMS OF TOBACCO USE Alcohol intake: never Substance use: never Substance use type: does not use Do You Feel Safe in your Home?: Yes Lack of Transportation: YES Lack of Food: Never True Current Housing: I Have Housing Concerned About Future Housing: No Difficulty Paying Gas/Electric Bills: No Difficulty Paying for Meds: No Currently Unemployed: No Education: Trade/Vocational Certificate Difficulty w/ Childcare or Family Care: No Living arrangements: other Additional living arrangements comments: LIVES WITH LIFE PARTNER - [place] Occupation/Education: retired Gender identity (if verbalized by the patient): Female Sexual Orientation (if Verbalized by the Patient): Lesbian, Flynn, or Homosexual Spiritual care concerns: No Comments At time of signature, agree with nursing past medical, surgical, social and family history. There is no relevant family history pertinent to the presenting complaint? Exam Const: General: cooperative, healthy appearing, no acute distress and well nourished Nutritional Appearance: well nourished Orientation/consciousness: patient oriented x3 Limitations: no limitations HENMT: Head: normal to inspection, normocephalic and atraumatic Ears: TM normal on the left, EAC's normal, mastoids normal on the right and on the left edematous, tender and erythema, no periauricular adenopathy and hearing grossly impaired on the left (deaf at baseline) Face/Nose/Sinus: Normal external nose present, Normal nares present, Normal nasal mucous membranes and turbinates present, No nasal discharge present, normal facial exam and sinuses nontender Face and sinus: normal facial exam and sinuses nontender Mouth: Yes Normal oral and palatal mucosa present, Yes lip normal, Yes tongue normal and Yes moist mucous membranes Throat: posterior oropharynx normal, tonsils normal and uvula midline Eyes: General: appearance normal, both eyes and all related structures Alignment and Position: alignment normal and position normal Eyelids: eyelids normal Pupils: Equal, round and reactive pupils present EOM: EOMs intact bilaterally Neck: Neck: normal visual inspection, full ROM, no lymphadenopathy and supple Chest: Chest palpation & inspection: normal inspection of the chest Resp: Effort & Inspection: normal respiratory effort and able to speak in complete sentences Auscultation: clear to auscultation bilaterally, no crackles, no rales, no rhonchi and no wheezes Cardio: Rate: regular rate Rhythm: regular rhythm Heart sounds: S1 normal heart sound present and S2 normal heart sound present Skin: General skin exam: normal color and no rashes or lesions noted Neuro: General: patient oriented x3 and moves all extremities Cranial nerves: Yes Equal, round and reactive pupils present Cognition (Neuro): normal cognition Speech: normal speech Gait exam (Neuro): Normal gait present Extrem: General: normal to inspection and full ROM Psych: Appearance: grossly normal and well kempt Mental Status: mental status grossly normal Speech and movement: Normal speech and movement present Course Course Emergency Course: Patient being transferred to [facility] for concern of mastoiditis. Patient has history of mastoiditis as a child. Patient presenting with extreme tenderness to mastoid, swelling and mild erythema. Patient is in need of IV antibiotics Portions of this record may have been created with voice recognition software? Level of Care: Express Care Visit Vital Signs Vital signs: Vital Signs Temperature 36.2 C L 06/26/24 15:11 Pulse Rate 79 06/26/24 15:11 Respiratory Rate 16 06/26/24 15:11 Blood Pressure 123/70 06/26/24 15:11 Pulse Oximetry 99 06/26/24 15:11 Temperature 36.2 C L 06/26/24 15:11 Pulse Rate 79 06/26/24 15:11 Respiratory Rate 16 06/26/24 15:11 Blood Pressure 123/70 06/26/24 15:11 Pulse Oximetry 99 06/26/24 15:11 Reviewed Transfer Transfered to: [facility] Transportation: Other (Private auto) Transfer rationale: Patient being transferred to [facility] for concern of mastoiditis. Patient has history of mastoiditis as a child. Patient presenting with extreme tenderness to mastoid, swelling and mild erythema. Patient is in need of IV antibiotics Accepting physician: Bill TOUSSAINT Medical Decision Making MDM Narrative Medical decision making narrative: Patient being transferred to [facility] for concern of mastoiditis. Patient has history of mastoiditis as a child. Patient presenting with extreme tenderness to mastoid, swelling and mild erythema. Patient is in need of IV antibiotics Differential diagnosis considered: Mastoiditis, Gan virus, strep pharyngitis, allergic rhinitis, upper respiratory tract infection, sinusitis, rhinosinusitis, nasopharyngitis. viral pharyngitis, otitis media, otitis externa, otitis effusion, foreign body, cerumen impaction, viral syndrome, and influenza.? Medical Records Medical records reviewed: Yes I reviewed the external patient's medical records. Vital Signs Vital Signs: Vital Signs Temperature 36.2 C L 06/26/24 15:11 Pulse Rate 79 06/26/24 15:11 Respiratory Rate 16 06/26/24 15:11 Blood Pressure 123/70 06/26/24 15:11 Pulse Oximetry 99 06/26/24 15:11 Temperature 36.2 C L 06/26/24 15:11 Pulse Rate 79 06/26/24 15:11 Respiratory Rate 16 06/26/24 15:11 Blood Pressure 123/70 06/26/24 15:11 Pulse Oximetry 99 06/26/24 15:11 Discharge Plan Discharge Clinical Impression: Acute mastoiditis of left side Patient Disposition: Acute Care Hospital Condition: Stable Patient Language: Telugu Prescriptions: No Action nystatin-triamcinolone 100,000-0.1 unit/gram-% ointment 1 applic topical BID Qty: 60 0RF omeprazole 40 mg capsule,delayed release(DR/EC) See Rx Instructions .ROUTE .COMPLEX Qty: 90 1RF Dose Instruction: TAKE 1 CAPSULE BY MOUTH DAILY Rx Instructions: TAKE 1 CAPSULE BY MOUTH DAILY rosuvastatin 5 mg tablet See Rx Instructions .ROUTE .COMPLEX Qty: 90 1RF Dose Instruction: TAKE 1 TABLET(5 MG) BY MOUTH DAILY Rx Instructions: TAKE 1 TABLET(5 MG) BY MOUTH DAILY sertraline 50 mg tablet See Rx Instructions .ROUTE .COMPLEX Qty: 90 1RF Dose Instruction: TAKE 1 TABLET BY MOUTH DAILY Rx Instructions: TAKE 1 TABLET BY MOUTH DAILY sertraline 100 mg tablet 100 mg PO DAILY Qty: 90 1RF zolpidem 10 mg tablet 10 mg PO QHS Qty: 30 1RF cholecalciferol (vitamin D3) 10 mcg (400 unit) Capsule 20 mcg PO DAILY calcium citrate 1,200 mg DAILY levothyroxine 75 mcg tablet 75 mcg PO DAILY Qty: 90 1RF losartan 25 mg tablet See Rx Instructions .ROUTE .COMPLEX Qty: 100 1RF Dose Instruction: TAKE 1 TABLET BY MOUTH DAILY AT BEDTIME Rx Instructions: TAKE 1 TABLET BY MOUTH DAILY AT BEDTIME Follow-up/Referrals: UNKNOWN,DOCTOR [Non-Staff] - Time of Disposition: 15:40
[2024-06-26 15:11] VITALS: BP 123/70; PULSE 79; RESP 16; TEMP 36.2; O2SAT 99
== END 2024-06-26 15:30 | disposition short-term general hospital (02) ==
PROVIDERS: Emergency Provider Nurse Practitioner Family
DX: H70.92 Unspecified mastoiditis, left ear (principal); I10 Essential (primary) hypertension; E03.9 Hypothyroidism, unspecified; E66.9 Obesity, unspecified; Z68.25 Body mass index [BMI] 25.0-25.9, adult; K21.9 Gastro-esophageal reflux disease without esophagitis; M17.12 Unilateral primary osteoarthritis, left knee; H91.92 Unspecified hearing loss, left ear; Z96.652 Presence of left artificial knee joint
CPT/HCPCS: 99212; G0463

== ENCOUNTER 2024-06-26 15:52 | Emergency (ER) | payer MEDICARE, SELFPAY ==
--- NOTE | ~2024-06-26 | CT_ITS ---
CT IAC/mastoids BI w con Ordering provider: Luli Redd PA-C Technique: CT temporal bones was performed by obtaining thin slice axial images. Coronal and sagittal reformatted images were also obtained. No contrast was administered. Radiation reduction technique utilized.The dose-length product was 267.66 mGy-cm. Reason for exam: . left posterior auricular pain, hx mastoiditis . Comparison: None. Findings: RIGHT TEMPORAL BONE: The mastoid air cells are normal and well aerated. The external auditory canal is normal and well aerated. The tympanic membrane as visualized is intact and normal. The middle ear (including the epitympanum, mesotympanum and hypotympanum) is normal and well aerated. The tegmen ty mpani is intact. The scutum is normal. The auditory ossicles are normal. The cochlea, vestibule, ve stibular and cochlear aqueduct are normal. The semicircular canals are normal. The facial nerve can al is normal. The internal auditory canal is normal. The carotid canal and jugular foramen are nor mal. The temporomandibular joint is normal. LEFT TEMPORAL BONE: Status post mastoidectomy is noted. Soft tissue density is seen in the surgical b ed which measures 8.2 x 9 mm. Minimal fluid is also seen in the residual air cells. The external uyen tory canal is normal and well aerated. Small soft tissue density is also seen near to the tympanic me mbrane measuring 3 mm. The middle ear (including the epitympanum, mesotympanum and hypotympanum) is n ormal and well aerated. The tegmen tympani is intact. The scutum is normal. The auditory ossicles a re not well demonstrated with residual small bone seen in the area. This may be postsurgical. The ella hlea, vestibule, vestibular and cochlear aqueduct are normal. The semicircular canals are normal. T he facial nerve canal is normal. The internal auditory canal is normal. The carotid canal and jugu lar foramen are normal. The temporomandibular joint is normal. The visualized brain parenchyma, paranasal sinuses, and superficial soft tissues are normal for patie nt's age. ( Indication seen. IMPRESSION: Status post left mastoidectomy. Soft tissue density is seen in the surgical bed which is most likely inflammatory versus postsurgical change with packing material placed versus cholesteatoma. Clinical correlation and further evaluatio n advised. Small soft tissue density near to the tympanic membrane measuring 3 mm which may represent inflammato ry process versus cholesteatoma versus surgical change. Clinical evaluation advised. The ossicles Landmarks in the left middle ear are not well demonstrated with one ossicle is noted whi ch is most likely postsurgical change.. Reviewed, dictated and finalized at location A. IMPRESSION: Status post left mastoidectomy. Soft tissue density is seen in the surgical bed which is most likely inflammato ry versus postsurgical change with packing material placed versus cholesteatoma . Clinical correlation and further evaluation advised. Small soft tissue density near to the tympanic membrane measuring 3 mm which ma y represent inflammatory process versus cholesteatoma versus surgical change. C linical evaluation advised. The ossicles Landmarks in the left middle ear are not well demonstrated with on e ossicle is noted which is most likely postsurgical change..
--- OUTSIDE RECORDS SUMMARY | 2024-06-26 15:54 | XMS_ITS | Continuity of Care Document ---
Author Organization [facility] Address [address] [place] [address] Phone Care Team Providers Care Pasting Machine Offbearer Name Role Phone Aminah Hamm MD Unavailable Unavailable Allergies, Adverse Reactions, Alerts Substance Reaction Status Criticality codeine Other Active No Information Medications Medication Instructions Dosage Effective Dates (start - stop) Status Comments TESSALON 200MG CAPS 1 TID - Active SYNTHROID 137 MCG TABLET 1 QD-daily - Active Advance Directives Directive Yes / No Effective Date File Name No Information Encounters Encounter Description Practice Location Reason(s) For Visit Diagnoses Date Provider Providers Copied on Encounter [facility], [address], [place], [place], [address] , tel: [phone] [facility] No Information 8 Noris Burr. [address] , [address], [id number], [place]. tel:[phone] [facility], [address], [place], [place], [address] , tel: [phone] [facility] No Information 1 Noris Burr. [address], [address], [place], [place], [address], [place]. tel:[phone] [facility], [address], [place], [place], [address] , tel: [phone] [facility] COUGH 4200 8 Noris Burr. [address], [address], [place], [place], [address], [place]. tel:[phone] [facility], [address], [place], [place], [address] , [place] tel: [phone] [facility] LONG-TERM USE MEDS NEC 8 Noris Burr. [address], [address], [place], [place], [address], [place]. tel: [phone] [facility], [address], [place], [place], [address] , [place] tel: [phone] [facility] INSOMNIA NOSHYPOTHYROID ISM NOS Dec- 2 8 Conversion Doctor. [address] [facility], [place], [address], [place]. [facility], [address], [place], [place], [address] , [place] tel: [phone] [facility] SCREEN LIPOID DISORDERSMALAI SE AND FATIGUE NEC 2 8 Noris Burr. [address], [address], [place], [place], [address], [place]. tel: [phone] [facility], [address], [place], [place], [address] , [place] tel: [phone] [facility] PERSISTENT INSOMNIA 8 Jacques Murrell. [address] [facility], 4th Floor, [place], [place], [address], [place]. tel: [phone] [facility], [address], [place], [place], [address] , [place] tel: [phone] [facility] NEED PRPHYL VC VRL HEPAT [address], [place], [place], [address], [place]. tel: [phone] [facility], [address], [place], [place], [address] , [place] tel: [phone] [facility] SCREENING-PULM ONARY TBNEED PRPHYL VC VARICELLA Fe 8 Noris Burr. [address], [address], [place], [place], [address], [place]. tel: [phone] [facility] [place], [address], [place], [place], [address] , [place] tel: [phone] [facility] ROUTINE MEDICAL EXAM 8 Noris Burr. [address], [address], [place], [place], [address], [place]. tel: [phone] [facility], [address], [place], [place], [address] , [place] tel:[phone] [facility] ACUTE SINUSITIS NOS 7 Noris Burr. [address], [address], [place], [place], [address], [place]. tel: [phone] [facility], [address], [place], [place], [address] , [place] tel: [phone] [facility] HEADACHE 2200 7 Jacques Murrell. [address] [facility], 4th Floor, [place], [place], [address], [place]. tel: [phone] [facility] [place], [address], [place], [place], [address] , [place] tel: [phone] [facility] LUMBAGODYSURIA 6 Noris Burr. [address], [address], [place], [place], [address], [place]. tel: [phone] [facility] [place], [address], [place], [place], [address] , [place] tel:[phone] [facility] DYSPHAGIAACUTE URI NOS 6 Noris Burr. [address], [address], [place], [place], [address], [place]. tel: [phone] [facility] [place], [address], [place], [place], [address] , [place] tel: [phone] [facility] ABN CLINICAL FINDING NEC 200 5 Noris Burr. [address], [address], [place], [place], [address], [place]. tel: [phone] [facility], [address], [place], [place], [address] , [place] tel: [phone] [facility] DIZZINESS AND GIDDINESS 5 Noris Burr. [address], [place], [place], [address], [place]. tel: [phone] [facility], [address], [place], [place], [address] , [place] tel:[phone] [facility] ACUTE BRONCHITISBENI GN HYPERTENSION 5 Noris Burr. [address], [place], [place], [address], [place]. tel: [phone] [facility], [address], [place], [place], [address] , tel: [facility] CHRONIC SINUSITIS NOS 4 Noris Burr. [address], [address], [place], [place], [address], [place]. tel: [phone] [facility], [address], [place], [place], [address] , [place] tel: [phone] [facility] No Information 4 Noris Burr. [address], [address], [place], [place], [address], [place]. tel: [phone] [facility], [address], [place], [place], [address] , [place] tel: [phone] [facility] ALLERGIC RHINITIS NOSESOPHAGEAL REFLUX 200 4 Jacques Murrell. [address] [facility], 4th Floor, [place], [place], [address], [place]. tel:[phone] [facility], [address], [place], [place], [address] , [place] tel: [phone] [facility] PURE HYPERCHOLESTER OLEMFAM HX-ISCHEM HEART DISPRECORDIAL PAIN 3 Noris Burr. [address], [address], [place], [place], [address], [place]. tel: [phone] [facility] [place], [address], [place], [place], [address] , [place] tel: [phone] [facility] CHEST PAIN NOS 7-200 3 Noris Burr. [address] , [address], [place], [place], [address], [place]. tel: [phone] [facility] [place], [address], [place], [place], [address] , [place] tel:[phone] [facility] HYPERLIPIDEMIA NEC/NOS 4-200 3 Noris Burr. [address] , [address], [place], [place], [address], [place]. tel: [phone] [facility] [place], [address], [place], [place], [address] , [place] tel:[phone] [facility] LABYRINTHITIS NOSNONSUPP OTITIS MEDIA NOS 2-200 3 Noris Burr. [address] , [address], [place], [place], [address], [place]. tel: [phone] [facility] [place], [address], [place], [place], [address] , [place] tel:[phone] [facility] DEPRESSIVE DISORDER NEC 5-200 3 Conversion Doctor. [address] [place] [address], [address], [place]. [facility] [place], [address], [place], [place], [address] , [place] tel: [phone] [facility] SYMPT FEM CLIMACT STATE Sep-0 4-200 2 Conversion Doctor. [facility] [place], [address], [place]. [facility] [place], [address], [place], [place], [address] , [place] tel:[phone] [facility] ANXIETY STATE NOS Apr-0 1-200 2 Conversion Doctor. [facility] [place], [address], [place]. [facility] [place], [address], [place], [place], [address] , [place] tel:[phone] [facility] GYNECOLOGIC EXAMINATIONSCR EEN MAL NEOP-CERVIX 0-200 1 Noris Burr. [address], [address], [place], [place], [address], [place]. tel: [phone] [facility] [place], [address], [place], [place], [address] , tel: [phone] [facility] JT DERANGMNT NEC-UNSP JT 0 7200 1 Noris Burr. [address], [address], [place], [place], [address], [place]. tel: [phone] [facility] [place], [address], [place], [place], [address] , tel: [phone] [facility] RECTAL & ANAL HEMORRHAGEACUT E PHARYNGITIS 9200 1 Noris Burr. [address], [address], [place], [place], [address], [place]. tel: [phone] [facility], [address], [place], [place], [address] , tel: [phone] [facility] MOTION SICKNESS 8200 0 Noris Burr. [address], [address], [place], [place], [address], [place]. tel:[phone] Family History Family Member Type Diagnosis Age At Onset Family h/o Problem (finding) ISCHEMIC HEART DISEASE( IHD) Immunizations Vaccine Date Status Comments 66699 - Hepatitis_B administered Source: Source Unspecified 13990 - Varicella administered Source: [place] urce Unspecified 61701 - Hepatitis_B administered Source: Source Unspecified 39643 - TD administered Source: Source Unspecified Payers Payer name Insurance type Covered constitution party ID Authoriza tion(s) No Information Social History Type Description Quantity Date Captured Comments Alcohol Use Details Unknown Caffeine Use Details Unknown Tobacco Use Status No Information Smoking Status No Information Sex Female Chief Complaint And Reason For Visit No Information Reason For Referral Reason For Referral No Information History Of Present Illness Encounter Date Complaint History Of Prese nt Illness No Information Functional Status Date Functional Assessmen t No Information Instructions Date Instruction Additional Infor mation No Information Assessments Type Assessment Date No Information Patient Care Teams Name Effective Dates (start - stop) Status Members No Information
--- OUTSIDE RECORDS SUMMARY | 2024-06-26 15:54 | XMS_ITS | CONTINUITY OF CARE DOCUMENT ---
Author Name marielle palomares Address Unknown Organization [facility] Address [address] [place] [address] Phone [phone] Care Team Providers Care Poultry Slaughterer Name Role Phone marielle palomares Unavailable Unavailable
--- OUTSIDE RECORDS SUMMARY | 2024-06-26 15:55 | XMS_ITS | Clinical Summary ---
Author Organization [place] [address] [facility] Address [address] [place] [address] Care Team Providers Care Telehealth Director Name Role Phone Triny Bolaños MD Primary Care Provider Reuben Cabrera MD Unavailable Allergies Active Allergy Reactions Criticality Noted Date Comments Ciprofloxacin Blisters High 10/07/2019 Penicillin G Blisters High 10/07/2019 Medications zolpidem (AMBIEN) 10 mg tablet Take 1 tablet (10 mg total) by mouth nightly 12/27/2020 Active sertraline (ZOLOFT) 50 mg tablet Take 1 tablet (50 mg total) by mouth daily 11/29/2020 Active rosuvastatin (CRESTOR) 5 mg tablet Take 1 tablet (5 mg total) by mouth daily 10/17/2020 Active omeprazole (PriLOSEC) 40 mg capsule Take 1 capsule (40 mg total) by mouth daily 12/23/2020 Active losartan (COZAAR) 25 mg tablet Take 1 tablet (25 mg total) by mouth daily 11/30/2020 Active levothyroxine sodium (LEVOTHYROXINE ORAL) Take 75 mcg by mouth daily 11/15/2020 Active famotidine (PEPCID) 20 mg tablet 12/23/2020 Active ALPRAZolam (XANAX) 0.25 mg tablet Take 1 tablet (0.25 mg total) by mouth 2 (two) times a day 10/17/2020 Active gabapentin (NEURONTIN) 300 mg capsule Take 2 capsules (600 mg total) by mouth 08/26/2021 Active Active Problems Problem Noted Date Diagnosed Date Aortic valve regurgitation 09/24/2021 Shortness of breath 09/24/2021 Abnormal mammogram 06/30/2010 Surgical History Surgery Date Site/Laterality Comments TYMPANOPLASTY 1972 & 1966 Left Mastoid 1st then Plasty REPLACEMENT TOTAL KNEE ANKLE ARTHROSCOPY APPENDECTOMY KNEE ARTHROSCOPY W/ LATERAL RELEASE BREAST SURGERY 1993 CHOLECYSTECTOMY HYSTERECTOMY JOINT REPLACEMENT Medical History Medical History Date Comments Allergic rhinitis Anxiety Heart disease Hypertension GERD (gastroesophageal reflux disease) Thyroid disease Arthritis Kidney stone Family History Medical History Relation Name Comments Stroke Brother Teja Hypertension Father Don Stroke Father Don Alzheimer's disease Mother Nighat Relation Name Status Comments Brother Teja Father Don Mother Nighat Social History Tobacco Use Types Packs/Day Years Used Date Smoking Tobacco: Never Personal Safety Answer Date Recorded Getting School Help Needed Not on file 06/01 Comments Unknown Sex and Gender Information Value Date Recorded Sex Assigned at Not on file Legal Sex Female 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 Gender Identity Female 01/01/2021 3:32 PM CDT Sexual Orientation Lesbian 01/01/2021 3: 32 PM CDT Obstetrics History Last Filed Vital Signs Vital Sign Reading Time Taken Comments Blood Pressure 104/70 01/12/2024 10:26 AM CDT Pulse 75 01/12/2024 10:26 AM CDT Temperature 36.3 C (97.3 F) 10/07/2019 9:11 AM CDT Respiratory Rate - - Oxygen Saturation 96% 01/12/2024 10:26 AM CDT Inhaled Oxygen Concentration - - Weight 64.1 kg (141 lb 4.8 oz) 01/12/2024 10:26 AM CDT Height 154.9 cm (5' 1 ) 01/12/2024 10:26 AM CDT Body Mass Index 26.7 01/12/2024 10:26 AM CDT Plan of Treatment Health Maintenance Due Date Last Done Comments Colon Cancer Screening-Colonoscopy 1954 Depression Screening 1954 Fall Risk Assessment 1954 Hepatitis C Screening 1954 Osteoporosis Screening-Bone Density Scan 1954 DTaP/Tdap/Td Vaccine (1 - Tdap) 1965 Hepatitis B Screening 1972 Pneumococcal vaccine 65+ (1 of 1 - PCV) 2004 Zoster Vaccine (1 of 2) 2004 Breast Cancer Screening-Mammogram 12/10/2018 018 Well Visit 65+ 2019 Influenza Vaccine (#1) 2023 9, 02/01/2018, 01/28/2017, Additional history exists Procedures Procedure Name Priority Date/Time Associated Diagnosis Comments SCREENING MAMMOGRAM BILATERAL W EUDIN Schedule Routine, Read Routine (OP Routine) 12/10/2017 12:20 PM CDT Encounter for screening mammogram for malignant neoplasm of breast from Last 3 Months or Most Recently Relevant to Health Maintenance Results * Screening Mammogram Bilateral W Eduin (12/10/2017 12:20 PM CDT) Anatomical Region Laterality Modality Breast Bilateral Mammography Narrative 12/11/2017 11:44 AM CDT Mammogram Technique: Bilateral Digital Breast Tomosynthesis, Bilateral C-view 2D Screening mammogram. Views obtained: bilateral craniocaudal and bilateral mediolateral oblique. Computer Aided Detection was performed. Mammogram Findings: The present examination has been compared to prior imaging studies performed on 05/03/2007 and 05/24/2010, and at [facility] on 12/04/2011. There are scattered areas of fibroglandular density. There is no suspicious abnormality in either breast. Impression: Annual screening mammography is recommended. OVERALL FINAL ASSESSMENT: BI-RADS CATEGORY 1: Negative. Procedure Note Hilda Farias MD - 12/11/2017 Mammogram Technique: Bilateral Digital Breast Tomosynthesis, Bilateral C-view 2D Screening mammogram. Views obtained: bilateral craniocaudal and bilateral mediolateral oblique. Computer Aided Detection was performed. Mammogram Findings: The present examination has been compared to prior imaging studies performed on 05/03/2007 and 05/24/2010, and at [facility] on 12/04/2011. There are scattered areas of fibroglandular density. There is no suspicious abnormality in either breast. Impression: Annual screening mammography is recommended. OVERALL FINAL ASSESSMENT: BI-RADS CATEGORY 1: Negative. Triny Bolaños MD IMG MAMMO PROCEDURES Fi nal Result from Last 3 Months or Most Recently Relevant to Health Maintenance Insurance MEDICARE [facility] MEDICARE [facility] MEDICARE [facility] Advance Directives For more information, please contact: [phone] Documents on File Type Date Recorded Patient District Sales Representative Expl anation Power of Refractory Products Supervisor 09/24/2021 11:30 AM Care Teams Telehealth Director Relationship Specialty Start Date End Date Triny Bolaños MD [address] [place] [address] PCP - General 02/15/15 Reuben Cabrera MD [address] [facility] [place] [address] Referring Physician Otolaryngology 01/08/21
--- OUTSIDE RECORDS SUMMARY | 2024-06-26 15:55 | XMS_ITS | Continuity of Care Document ---
Author Organization [facility] Address [address] [place] [address] [address] [place] [address] Phone Care Team Providers Care Rn Med Surg Name Role Phone Alondra Wilkins Unavailable Unavailable Procedures Procedure Date Office Consultation Advance Directives Directive Yes / No Effective Date File Name No Information Encounters Encounter Description Practice Location Reason(s) For Visit Diagnoses Date Provider Providers Copied on Encounter Office Consultation [facility], [address], [place], [place], [address], [place] tel:[phone] [facility] No Information 9-200 8 Claudette Cantu. [address] [facility] , [address], [place], [address], [place]. tel:[phone] Referring Provider: Olya Ervin OD, [address] [facility], [place], [address]. tel:[phone] Family History Family Member Type Diagnosis Age At Onset No Information Payers Payer name Insurance type Covered democrat ID Authoriza tion(s) BCBS [place] Out Of [place] [id number] Social History Type Description Quantity Date Captured Comments Sex Female Smoking Status No Information Chief Complaint And Reason For Visit No [...]
--- OUTSIDE RECORDS SUMMARY | 2024-06-26 15:55 | XMS_ITS | Referral Summary ---
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 There are scattered areas of [...] performed on 05/03/2007 and 05/24/2010, and at [facility] on 12/04/2011. There are scattered areas of fibroglandular density. There is no suspicious abnormality in either breast. Impression: Annual screening mammography is recommended. OVERALL FINAL ASSESSMENT: BI-RADS CATEGORY 1: Negative. Triny Bolaños MD IMG MAMMO PROCEDURES Fi nal Result from Last 3 Months or Most Recently Relevant to Health Maintenance Insurance MEDICARE [facility] MEDICARE [facility] MEDICARE [facility] Advance Directives For more information, please contact: [phone] Documents on File Type Date Recorded Patient Child Care Centre Director Expl anation Power of Tip Fixer 09/24/2021 11:30 AM Care Teams Oyster Bed Worker Relationship Specialty Start Date End Date Triny Bolaños MD [address] [place] [address] PCP - General 02/15/15 Reuben Cabrera MD 9 [facility] [place] [address] Referring Physician Otolaryngology 01/08/21
--- OUTSIDE RECORDS SUMMARY | 2024-06-26 15:55 | XMS_ITS | Encounter Summary ---
Author Organization [facility] Address [address] [place] [address] Care Team Providers Care Scrap Separator Name Role Phone Aminah Hamm MD Primary Care Provider [phone] Encounter Details Date Type Department Care Team (Late st Contact Info) Description 11/10/[address] [facility] Support Serv. ([facility]) [address] 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
--- OUTSIDE RECORDS SUMMARY | 2024-06-26 15:55 | XMS_ITS | Continuity of Care Document ---
Author Organization [facility] Address [address] [facility] [place] [address] Phone Care Team Providers Care Flight Control Manager Name Role Phone Allyn Way DPT Unavailable Unavailable Procedures Procedure Date THERAPEUTIC EXERCISES NEUROMUSCULAR RE-ED MANUAL THERAPY THERAPEUTIC EXERCISES NEUROMUSCULAR RE-ED MANUAL THERAPY FUNC ACTIVITY 15 MIN HOT/COLD PACK ELECTRIC STIMULATION UNATT THERAPEUTIC EXERCISES NEUROMUSCULAR RE-ED MANUAL THERAPY FUNC ACTIVITY 15 MIN HOT/COLD PACK ELECTRIC STIMULATION UNATT THERAPEUTIC EXERCISES NEUROMUSCULAR RE-ED MANUAL THERAPY FUNC ACTIVITY 15 MIN HOT/COLD PACK ELECTRIC STIMULATION UNATT THERAPEUTIC EXERCISES NEUROMUSCULAR RE-ED MANUAL THERAPY HOT/COLD PACK ELECTRIC STIMULATION UNATT PT EVALUATION THERAPEUTIC EXERCISES MANUAL THERAPY HOT/COLD PACK ELECTRIC STIMULATION UNATT Advance Directives Directive Yes / No Effective Date File Name No Information Encounters Encounter Description Practice Location Reason(s) For Visit Diagnoses Date Provider Providers Copied on Encounter [facility], [address], [place], [place], [address], [place] tel:[phone] [place] No Information 3 Rayna Gruber. [address] [place] [address], [address], [place], [place], [facility], [place]. tel:[phone], [address], tel:[phone] [place] No Information Jan-1 6-[address] [place] [address], [address], [place], [place], [facility], . tel:[phone] Referring Provider: Rikki Mccoy, [facility] [address] [place] [address] [address], [place], [address]. tel:[phone] [place] [address], [id number], tel:[phone] [place] No Information Jan-0 7-[address] [place] [address], [address], [place], [facility], . tel:[phone] Referring Provider: Rikki Mccoy, [facility] [address] [place] [address] [address], [place], [address]. tel:[phone] [place] [address], [place], [address], tel:[phone] [place] No Information Jan-0 2-[address] [place] [address], [address], [place], [facility], [place]. tel:[phone] Referring Provider: Rikki Mccoy, [facility] [address] [place] [address] [address], [place], [address]. tel:[phone], [place], [address], [place] tel:[phone] [place] No Information Dec-3 0-[address] [place] [address], [address], [place], [facility], . tel:[phone] Referring Provider: Rikki Mccoy, [facility] [address] [place] [address] [address], [place], [address]. tel:[phone], [place], [place], [address], tel:[phone] [place] No Information Sep-2 7- 3 Wayspencer Jordani. [address] [facility], [address], [place], [facility], . tel:[phone] Referring Provider: Rikki Mccoy, [facility] [address] [place] [address] [address], [place], [address]. tel:[phone] [address], [place], [address], tel:[phone] [place] Pain in joint involving shoulder region Sep-2 3 Wayspencer Jordani. [address] [facility], [address], [place], [address], [place]. tel:[phone] Referring Provider: Rikki Mccoy, [facility] [address] [place] [address] [address], [place], [address]. tel:[phone] Family History Family Member Type Diagnosis Age At Onset No Information Payers Payer name Insurance type Covered libertarian ID Authorwilliama dameonbro(s) [facility] [id number] Social History Type Description Quantity Date Captured [...]
--- OUTSIDE RECORDS SUMMARY | 2024-06-26 15:55 | XMS_ITS | Clinical Summary ---
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 Gender Identity Not on file Sexual Orientation Not on file Plan of Treatment Health Maintenance Due Date Last Done Comments DTAP/TDAP/TD VACCINES (1 - Tdap) 1973 BREAST CANCER SCREENING 1994 COLORECTAL SCREENING 1999 Colorectal Cancer Screening 1999 FIT-DNA Q 3 years 1999 FIT/FOBT Q 1 year 1999 Flex Sig/CT Colonography Q 5 years 1999 PNEUMOCOCCAL VACCINE 50+ YEARS (1 of 1 - PCV) 06/04/19 05 ZOSTER VACCINE (1 of 2) 2004 OSTEOPOROSIS SCREENING 2019 INFLUENZA VACCINE (#1) 2023 RSV VACCINE (60+ or ) (1 - 1-dose 75+ series) 2029 Care Teams Shaping Machine Operator Relationship Specialty Start Date End Date Aminah Hamm MD [address] [place] [address] [address] [place] [address] PCP - General 11/16/01
--- OUTSIDE RECORDS SUMMARY | 2024-06-26 15:55 | XMS_ITS ---
Author Organization [facility] Address [address] [facility] [address] [place] [address] Care Team Providers Care Housekeeping Assistant Name Role Phone zzzzMigration, zzzzProvider Unavailable Unav ailable REASON FOR VISIT EMR-Gerry Encounters Encounter Location Date Provider Diagnosis [facility] [address] [facility] [address] [place] [address] 01/31/2023 zzzzProvider zzzzMigration Plan Of Treatment No Information Progress Notes * Silvana HAWK MDOB: (69 yo F)Acc No.[id number]:01/31/2023 Patient: Matthew WOODYSilvana :1955 A ge:67 Y S ex:Female Address:[address] [facility], [facility] [address] Subjective: * Chief Complaints: * E MR-Gerry * Medical History: * Surgical History: * Hospitalization/Major Diagno stic Procedure: * Medications: Objective: * Vitals: * Physical Examination: Assessment: Plan: * Treatment: * Procedure Codes: * * Date:
--- OUTSIDE RECORDS SUMMARY | 2024-06-26 15:55 | XMS_ITS | Encounter Summary ---
Author Organization [facility] Address [address] [place] [address] Care Team Providers Care Cuprous Chloride Helper Name Role Phone Aminah Hamm MD Primary Care Provider [phone] Encounter Details Date Type Department Care Team (Latest Contact Info) Description 11/16/2001 Outpatient Historical [facility] Florin Santacruz MD [address] [facility] [address] [place] [address] JOINT DERANGEMENT NOS-HAND (Primary Dx) Social History Tobacco Use Types Packs/Day Years Used Date Smoking Tobacco: Never Assessed Comments Unknown Sex and Gender Information Value Date Recorded Sex Assigned at Not on file Legal Sex Female 2:44 AM 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
--- OUTSIDE RECORDS SUMMARY | 2024-06-26 15:55 | XMS_ITS ---
Author Organization [facility] song Address [address] [facility] [facility] [address] [place] [address] Care Team Providers Care Salesperson Hosiery Name Role Phone zzzzMigration, zzzzProvider Unavailable Unav ailable REASON FOR VISIT EMR-Gerry Encounters Encounter Location Date Provider Diagnosis [facility] [address] [facility] [address] [place] [address] 02/01/2023 zzzzProvider zzzzMigration Plan Of Treatment No Information Progress Notes * Silvana HAWK MDOB: (69 yo F)Acc No.[id number]:02/01/2023 Patient: Matthew WOODYSilvana :1955 A ge:67 Y S ex:Female Address:[address] [facility], [facility] [address] Subjective: * Chief Complaints: * E MR-Gerry * Medical History: * Surgical History: * Hospitalization/Major Diagno stic Procedure: * Medications: Objective: * Vitals: * Physical Examination: Assessment: Plan: * Treatment: * Procedure Codes: * * Date:
--- OUTSIDE RECORDS SUMMARY | 2024-06-26 15:55 | XMS_ITS | Patient Health Record ---
Author Organization [facility] Address [address] [facility] [address] [place] [address] Support Name Relationship Address Phone Silvana Santos Guarantor Unknown [phone] Reason For Referral No Information Plan Of Treatment No Information Insurance Providers Payer Name Payer Address Payer Phone Subscriber Number Group Number Insured Name Patient Relationship to Insured Coverage Start Date Coverage End Date [address] [place] [address] [id number] Silvana Santos Self - patient is the insured 1
[2024-06-26 16:17] VITALS: BP 149/61; PULSE 73; RESP 16; TEMP 36.8; O2SAT 100
[2024-06-26 17:20] VITALS: PULSE 68; RESP 16; O2SAT 99
[2024-06-26 17:27] VITALS: BP 151/68; PULSE 69; RESP 16; O2SAT 99
--- OUTSIDE RECORDS SUMMARY | 2024-06-26 18:03 | XMS_ITS | CONTINUITY OF CARE DOCUMENT ---
Author Name marielle palomares Address Unknown Organization [facility] Address [address] [place] [address] Phone [phone] Care Team Providers Care Environmental Web Crawler Name Role Phone marielle palomares Unavailable Unavailable
--- OUTSIDE RECORDS SUMMARY | 2024-06-26 18:03 | XMS_ITS | Continuity of Care Document ---
Author Organization [facility] Address [address] [place] [address] [address] [place] [address] Phone Care Team Providers Care Washer And Crusher Tender Name Role Phone Alondra Wilkins Unavailable Unavailable Procedures Procedure Date Office Consultation Advance Directives Directive Yes / No Effective Date File Name No Information Encounters Encounter Description Practice Location Reason(s) For Visit Diagnoses Date Provider Providers Copied on Encounter Office Consultation [facility], [address], [place], [place], [address], [place] tel:[phone] [facility] No Information 9[address] 8 Claudette Cantu. [address] [facility] , [address], [place], [address], [place]. tel:[phone] Referring Provider: Olya Ervin OD, [address] [facility], [place], [address]. tel:[phone] Family History Family Member Type Diagnosis Age At Onset No Information Payers Payer name Insurance type Covered green party ID Authoriza tion(s) [place] [id number] Social History Type Description Quantity Date Captured [...]
--- OUTSIDE RECORDS SUMMARY | 2024-06-26 18:03 | XMS_ITS | Clinical Summary ---
Author Organization [place] [address] [facility] Address [address] [place] [address] Care Team Providers Care Keeper Helper Name Role Phone Triny Bolaños MD Primary [...] on file Legal Sex Female 3:51 AM RAMP AGENT Gender Identity Female 01/01/2021 3:32 PM CDT [...] performed on 05/03/2007 and 05/24/2010, and at [facility] on 12/04/2011. There are scattered areas of [...] performed on 05/03/2007 and 05/24/2010, and at [facility] on 12/04/2011. There are scattered areas of fibroglandular density. There is no suspicious abnormality in either breast. Impression: Annual screening mammography is recommended. OVERALL FINAL ASSESSMENT: BI-RADS CATEGORY 1: Negative. Triny Bolaños MD IMG MAMMO PROCEDURES Fi nal Result from Last 3 Months or Most Recently Relevant to Health Maintenance Insurance MEDICARE [facility] MEDICARE [facility] MEDICARE [facility] Advance Directives For more information, please contact: [phone] Documents on File Type Date Recorded Patient An/Ssn 2 4 Operator Expl anation Power of Signal Tester 09/24/2021 11:30 AM Care Teams Keeper Helper Relationship Specialty Start Date End Date Triny Bolaños MD [address] [place] [address] PCP - General 02/15/15 Reuben Cabrera MD [address] [facility] [place] [address] Referring Physician Otolaryngology 01/08/21
--- OUTSIDE RECORDS SUMMARY | 2024-06-26 18:03 | XMS_ITS | Continuity of Care Document ---
Author Organization [facility] Address [address] [place] [address] Phone Care Team Providers Care Leak Patcher Name Role Phone Aminah Hamm MD Unavailable [...] Diagnoses Date Provider Providers Copied on Encounter [facility], [address], [place], [place], [address] , tel: [phone] [facility] No Information 8 Noris Burr. [address] , [address], [address], [place]. tel:[phone] [facility], [address], [place], [place], [address] , tel: [phone] [facility] No Information 1 Noris Burr. [address], [place], [place], [address], [place]. tel:[phone] [facility], [address], [place], [place], [address] , tel: [phone] [facility] COUGH 4200 8 Noris Burr. [address], [place], [place], [address], [place]. tel:[phone] [facility], [address], [place], [place], [address] , [place] tel: [phone] [facility] LONG-TERM USE MEDS NEC 8 Noris Burr. [address], [address], [place], [place], [address], [place]. tel: [phone] [facility], [address], [place], [place], [address] , [place] tel: [phone] [facility] INSOMNIA NOSHYPOTHYROID ISM NOS Dec- 2 8 Conversion Doctor. [address] [facility], [place], [address], [place]. [facility], [address], [place], [place], [address] , [place] tel: [phone] [facility] SCREEN LIPOID DISORDERSMALAI SE AND FATIGUE NEC 2 8 Noris Burr. [address], [address], [place], [place], [address], [place]. tel: [phone] [facility], [address], [place], [place], [address] , [place] tel: [phone] [facility] PERSISTENT INSOMNIA 8 Jacques Murrell. [address] [facility], 4th Floor, [place], [place], [address], [place]. tel: [phone] [facility], [address], [place], [place], [address] , [place] tel: [phone] [facility] NEED PRPHYL VC VRL HEPAT [address], [place], [place], [address], [place]. tel: [phone] [facility], [address], [place], [place], [address] , [place] tel: [phone] [facility] SCREENING-PULM ONARY TBNEED PRPHYL VC VARICELLA Fe 8 Noris Burr. [address], [address], [place], [place], [address], [place]. tel: [phone] [facility], [address], [place], [place], [address] , [place] tel: [phone] [facility] ROUTINE MEDICAL EXAM 8 Noris Burr. [address], [address], [place], [place], [address], [place]. tel: [phone] [facility], [address], [place], [place], [address] , [place] tel:[phone] [facility] ACUTE SINUSITIS NOS 7 Noris Burr. [address], [address], [place], [place], [address], [place]. tel: [phone] [facility], [address], [place], [place], [address] , [place] tel:[phone] [facility] HEADACHE 2 7 Jacques Murrell. [address] [facility], 4th Floor, [place], [place], [address], [place]. tel: [phone] [facility], [address], [place], [place], [address] , [place] tel: [phone] [facility] DYSURIALUMBAGO 6 Noris Burr. [address], [address], [place], [place], [address], [place]. tel: [phone] [facility], [address], [place], [place], [address] , [place] tel:[phone] [facility] DYSPHAGIAACUTE URI NOS 6 Noris Burr. [address], [address], [place], [place], [address], [place]. tel: [phone] [facility], [address], [place], [place], [address] , [place] tel: [phone] [facility] ABN CLINICAL FINDING NEC 200 5 Noris Burr[address], [place], [place], [address], [place]. tel: [phone] [facility], [address], [place], [place], [address] , [place] tel: [phone] [facility] DIZZINESS AND GIDDINESS [address], [place], [place], [address], [place]. tel: [phone] [employer] [employer], [address], [place], [place], [address] , [place] tel:[phone] [facility] ACUTE BRONCHITISBENI GN HYPERTENSION 5 Noris Burr. [address], [place], [place], [address], [place]. tel: [phone] [facility], [address], [place], [place], [address] , tel: [phone] [facility] CHRONIC SINUSITIS NOS 4 Noris Burr. [address], [place], [place], [address], [place]. tel: [phone] [facility] [facility], [address], [place], [place], [address] , [place] tel: [phone] [facility] No Information 4 Noris Burr[address], [place], [place], [address], [place]. tel: [phone] [facility] [facility], [address], [place], [place], [address] , [place] tel: [phone] [facility] ALLERGIC RHINITIS NOSESOPHAGEAL REFLUX 200 4 Jacques Murrell. [address], [address], [place], [place], [address], [place]. tel:[phone] [facility] [facility], [address], [place], [place], [address] , [place] tel: [phone] Administration PURE HYPERCHOLESTER OLEMFAM HX-ISCHEM HEART DISPRECORDIAL PAIN [address], [place], [place], [address], [place]. tel: [phone] [facility], [address], [place], [place], [address] , [place] tel: [phone] [facility] CHEST PAIN NOS 7-200 3 Noris Burr. [address], [place], [place], [address], [place]. tel: [phone] [employer], [address], [place], [place], [address] , [place] tel: [phone] [facility] HYPERLIPIDEMIA NEC/NOS 4-200 3 Noris Burr. [address] , [address], [place], [place], [address], [place]. tel: [phone] [employer], [address], [place], [place], [address] , [place] tel:[phone] [facility] NONSUPP OTITIS MEDIA NOSLABYRINTHIT IS NOS 2-200 3 Noris Burr. [address] , [address], [place], [place], [address], [place]. tel: [phone] [facility], [address], [place], [place], [address] , [place] tel:[phone] [facility] DEPRESSIVE DISORDER NEC 5-[address] [facility] [place], [address], [place]. [employer] [facility], [address], [place], [place], [address] , [place] tel:[phone] [facility] SYMPT FEM CLIMACT STATE Sep-0 4-[address] [facility] [place], [address], [place]. [facility] [employer], [address], [place], [place], [address] , [place] tel:[phone] [facility] ANXIETY STATE NOS Apr-0 1-[address] [facility] [place], [address], [place]. [employer], [address], [place], [place], [address] , [place] tel:[phone] [facility] SCREEN MAL NEOP-CERVIXGYN ECOLOGIC EXAMINATION 0200 1 Noris Burr. [address], [place], [place], [address], [place]. tel:[phone] [employer] [facility], [address], [place], [place], [address] , tel: [phone] [facility] JT DERANGMNT NEC-UNSP JT 0 7200 1 Noris Burr. [address], [place], [place], [address], [place]. tel:[phone] [employer], [address], [place], [place], [address] , tel: [phone] [facility] RECTAL & ANAL HEMORRHAGEACUT E PHARYNGITIS 9200 1 Noris Burr. [address], [address], [place], [place], [address], [place]. tel: [phone] [employer], [address], [place], [place], [address] , tel: [phone] [facility] MOTION SICKNESS 8200 0 Noris Burr. [address], [place], [place], [address], [place]. tel:[phone] Family History Family Member Type Diagnosis Age At Onset Family h/o Problem (finding) ISCHEMIC HEART DISEASE( IHD) Immunizations Vaccine Date Status Comments 15394 - Hepatitis_B administered Source: Source Unspecified 42275 - Varicella administered Source: So urce Unspecified 43881 - Hepatitis_B administered Source: Source Unspecified 17879 - TD administered Source: Source Unspecified Payers Payer name Insurance type Covered republican ID Authoriza tion(s) No Information Social History [...]
--- OUTSIDE RECORDS SUMMARY | 2024-06-26 18:03 | XMS_ITS | Encounter Summary ---
Author Organization [facility] Address [address] [place] [address] Care Team Providers Care Store Cashier Name Role Phone Aminah Hamm MD Primary Care Provider [phone] Encounter Details Date Type Department Care Team (Late st Contact Info) Description 11/10/2001 Outpatient Historical [facility] Support Serv. (Adt Cardiology-[facility]) [address] 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
--- OUTSIDE RECORDS SUMMARY | 2024-06-26 18:03 | XMS_ITS | Referral Summary ---
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 There are scattered areas [...] performed on 05/03/2007 and 05/24/2010, and at [facility] on 12/04/2011. There are scattered areas of fibroglandular density. There is no suspicious abnormality in either breast. Impression: Annual screening mammography is recommended. OVERALL FINAL ASSESSMENT: BI-RADS CATEGORY 1: Negative. Triny Bolaños MD IMG MAMMO PROCEDURES Fi nal Result from Last 3 Months or Most Recently Relevant to Health Maintenance Insurance [facility]ICARE [facility] MEDICARE [facility] MEDICARE Member Subscriber Plan / Payer (Ef fective 2019-Present) Name:Silvana Santos Member ID:[id number] Relation to Subscriber:Self Name:Silvana Santos Subscriber ID:[id number] Payer ID:[id number] Group ID:Not on file Type:MEDICARE TRADITIONAL Address: [address] [place] [address] [address] [facility] Advance Directives For more information, please contact: [phone] Documents on File Type Date Recorded Patient Order Dispatcher Chief Expl anation Power of Supervisor Lending Activities 09/24/2021 11:30 AM Care Teams Color Control Supervisor Relationship Specialty Start Date End Date Triny Bolaños MD [address] [place] [address] PCP - General 02/15/15 Reuben Cabrera MD [address] [facility] [place] [address] Referring Physician Otolaryngology 01/08/21
--- OUTSIDE RECORDS SUMMARY | 2024-06-26 18:03 | XMS_ITS | Encounter Summary ---
Author Organization [facility] Address 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
--- OUTSIDE RECORDS SUMMARY | 2024-06-26 18:03 | XMS_ITS | Clinical Summary ---
Author Organization [facility] Address [address] [facility] Attn: Epic Prelude ADT [place] [address] Care Team Providers Care Marketing Account Executive Name Role Phone Aminah Hamm MD Primary Care Provider [phone] Social History Tobacco Use Types Packs/Day Years Used Date Smoking Tobacco: Never Assessed Comments Unknown Sex and Gender Information Value Date Recorded Sex Assigned at Not on file Legal Sex Female 2:44 AM FEEDER CATCHER TOBACCO Gender Identity Not on file Sexual Orientation [...] - 1-dose 75+ series) 2029 Care Teams Marketing Account Executive Relationship Specialty Start Date End Date Aminah Hamm MD [address] [place] [address] [address] [address] PCP - General 11/16/01
--- OUTSIDE RECORDS SUMMARY | 2024-06-26 18:03 | XMS_ITS | Continuity of Care Document ---
Author Organization [facility] Address [address] [place] [address] Phone Care Team Providers Care Public Policy Professor Name Role Phone Allyn Way DPT Unavailable [...] Diagnoses Date Provider Providers Copied on Encounter [facility], [address], [place], [place], [id number], [place] tel:[phone] [place] No Information 3 Rayna Gruber. [address] [place] [address], [address], [place], [place], [facility], [place]. tel:[phone], [id number], tel:[phone] [place] No Information Jan-1 6-[address] [place] [address], [address], [place], [place], [facility], . [phone] Referring Provider: Rikki Mccoy, [facility] [address] [place] [address] [address], [place], [address]. tel:[phone] [place] [address], [id number], tel:[phone] [place] No Information Jan-0 7-[address] [place] [address], [address], [place], [facility], . tel:[phone] Referring Provider: Rikki Mccoy, [facility] [address] [place] [address] [address], [place], [address]. tel:[phone] [place] [address], [place], [id number], tel:[phone] [place] No Information Jan-0 2-[address] [place] [address], [address], [place], [facility], [place]. tel:[phone] Referring Provider: Rikki Mccoy, [facility] [address] [place] [address] [address], [place], [address]. tel:[phone], [place], [id number], [place] tel:[phone] [place] No Information Dec-3 0-[address] Allyn[address] [place] [address], [address], [place], [facility], . tel:[phone] Referring Provider: Rikki Mccoy, [facility] [address] [place] [address] [address], [place], [address]. tel:[phone], [place], [place], [id number], tel:[phone] [place] No Information Sep-2 7- 3 Wayspencer Jordani. [address] [facility] [address], [address], [place], [facility], . tel:[phone] Referring Provider: Rikki Mccoy, [facility] [address] [place] [address] [address], [place], [address]. tel:[phone], [place], [id number], tel:[phone] [place] Pain in joint involving shoulder region Sep-2 3 Wayspencer Jordani. [address] [facility], [address], [place], [address], [place]. tel:[phone] Referring Provider: Rikki Mccoy, [facility] [address] [place] [address] [address], [place], [address]. tel:[phone] Family History Family Member Type Diagnosis Age At Onset No Information Payers Payer name Insurance type Covered alliance party ID Authorwilliama dameonbro(s) [facility] [id number] Social History Type Description Quantity Date Captured [...]
--- NOTE | 2024-06-26 18:11 | ED_ITS ---
HPI - General Adult General Chief complaint: Unspecified Stated complaint: mastoiditis ? from UC Time Seen by Provider: 06/26/24 17:38 Source: patient Mode of arrival: ambulatory Limitations: no limitations History of Present Illness HPI narrative: Patient presents the emergency department for left posterior ear pain. Reports history of mastoiditis as a child. 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 Reports she does not regularly follow with an ENT doctor. She has been having sharp pains around her mastoid bone over the last several days. Related Data Home Medications ?Medication ?Instructions ?Recorded ?Confirmed ?Last Taken ?Type calcium citrate 1,200 mg DAILY 03/18/23 05/17/24 04/07/23 History cholecalciferol (vitamin D3) 10 20 mcg PO DAILY 03/18/23 05/17/24 04/07/23 History mcg (400 unit) capsule Allergies Allergy/AdvReac Type Severity Reaction Status Date / Time ciprofloxacin Allergy Severe blisters Verified 06/26/24 17:29 codeine Allergy Mild itching Verified 06/26/24 17:29 latex Allergy Unknown Rash Verified 06/26/24 17:29 mannitol (From Reclast) AdvReac Intermediate Fever Verified 06/26/24 17:29 water for injection,sterile AdvReac Intermediate Fever Verified 06/26/24 17:29 (From Reclast) zoledronic acid (From AdvReac Intermediate Fever Verified 06/26/24 17:29 Reclast) Review of Systems 2 Review of Systems: All systems reviewed & are unremarkable except as noted in HPI and below PMFSH Past Medical History Medical History Croup, spasmodic Difficulty swallowing Cough Atypical chest pain Pes anserine bursitis Impacted cerumen of left ear Obese Cough Upper respiratory infection RLQ abdominal pain Osteoporosis screening Breast cancer screening Aftercare following surgery (12/21/18) Benign essential hypertension Chronic insomnia Gastro-esophageal reflux disease without esophagitis Generalized anxiety disorder Hypothyroidism, unspecified Primary osteoarthritis of left knee Stress at home Surgical History Surgical History History of total right hip arthroplasty (~04/14/23) History of left mastoidectomy Hx of hysterectomy Presence of left artificial knee joint (12/21/18) Family History Family History Father Cerebrovascular accident, Onset Age: 75 Patient's father is Hypertension Sibling Cerebrovascular accident Mother Heart disease Thyroid disorder Social History Social History Social History: Life Partner Smoking status: Never smoker Second hand tobacco smoke exposure: No Additional smoking assessment comments: PT DENIES ALL FORMS OF TOBACCO USE Alcohol intake: never Substance use: never Substance use type: does not use Do You Feel Safe in your Home?: Yes Lack of Transportation: YES Lack of Food: Never True Current Housing: I Have Housing Concerned About Future Housing: No Difficulty Paying Gas/Electric Bills: No Difficulty Paying for Meds: No Currently Unemployed: No Education: Trade/Vocational Certificate Difficulty w/ Childcare or Family Care: No Living arrangements: other Additional living arrangements comments: LIVES WITH LIFE PARTNER - [place] Occupation/Education: retired Gender identity (if verbalized by the patient): Female Sexual Orientation (if Verbalized by the Patient): Lesbian, Flynn, or Homosexual Spiritual care concerns: No Exam 2 Narrative: GENERAL: Well-appearing, well-nourished, and in no acute distress. HEAD: Normocephalic, atraumatic. EYES: EOMI. ENT: Nares clear, no rhinorrhea or epistaxis. Mucous membranes moist. Oropharynx without tonsillar hypertrophy exudate or other lesions. Bilateral TMs pearly kamara non-bulging. No overlying mastoid erythema. Mild tenderness to palpation post-auricularly NECK: Supple. No adenopathy or masses. CHEST: Clear to auscultation. No respiratory distress. No wheezes rales or rhonchi HEART: Regular rate and rhythm. No murmur heard. Normal peripheral pulses. EXTREMITIES: Normal range of motion. No edema. SKIN: Warm, dry, no rash. NEURO: No focal deficits. Alert and oriented x3. PSYCH: Normal mood and affect Course Course Emergency Course: Patient and family updated on workup and agree with plan of care Vital Signs Vital signs: Vital Signs Temperature 98.2 F 06/26/24 16:17 Pulse Rate 73 06/26/24 16:17 Respiratory Rate 16 06/26/24 16:17 Blood Pressure 149/61 H 06/26/24 16:17 Pulse Oximetry 100 06/26/24 16:17 Oxygen Delivery Room Air 06/26/24 16:17 Temperature 97.6 F 06/26/24 22:30 Pulse Rate 63 06/26/24 23:22 Respiratory Rate 19 06/26/24 23:22 Blood Pressure 144/71 H 06/26/24 23:22 Pulse Oximetry 98 06/26/24 23:22 Oxygen Delivery Room Air 06/26/24 16:17 Medical Decision Making MDM Narrative Medical decision making narrative: Patient presents the emergency department for left postauricular pain. History of mastoiditis. She is afebrile and nontoxic appearing. External auditory canal and TM are without signs of infection. No erythema or edema post auricularly. Cbc without leukocytosis. Inflammatory markers are not elevated. CT IAC/mastoids without concerning findings. Patient and family updated on workup and agree with plan of care. She is to follow up with ENT. She was given warnings to return to the ER Vital Signs Vital Signs: Vital Signs Temperature 98.2 F 06/26/24 16:17 Pulse Rate 73 06/26/24 16:17 Respiratory Rate 16 06/26/24 16:17 Blood Pressure 149/61 H 06/26/24 16:17 Pulse Oximetry 100 06/26/24 16:17 Oxygen Delivery Room Air 06/26/24 16:17 Temperature 97.6 F 06/26/24 22:30 Pulse Rate 63 06/26/24 23:22 Respiratory Rate 19 06/26/24 23:22 Blood Pressure 144/71 H 06/26/24 23:22 Pulse Oximetry 98 06/26/24 23:22 Oxygen Delivery Room Air 06/26/24 16:17 Lab Data Lab results reviewed: Yes I reviewed the patient's lab results. 06/26/24 18:18 06/26/24 18:18 Labs: Lab Results 06/26/24 Range/Units 18:18 WBC 7.0 (4.5-10.0) K/mm3 RBC 4.59 (4.2-5.4) M/mm3 Hgb 14.2 D (12.0-15.0) g/dL Hct 40.7 (37.0-47.0) % MCV 88.7 (80-100) fl MCH 30.9 (26-34) pg MCHC 34.9 (32-36) g/dl RDW 12.3 (11.5-14.5) % Plt Count 296 (150-375) k/mm3 MPV 9.2 (7.4-10.4) fl Immature Gran % (Auto) 0.3 (0-0.5) % Neut % (Auto) 56.6 (45.5-73.1) % Lymph % (Auto) 32.6 (18.3-44.2) % Conway % (Auto) 7.5 (2.6-8.5) % Eos % (Auto) 2.3 (0-4.4) % Baso % (Auto) 0.7 (0.2-1.2) % Lymph # (Auto) 2.27 (0.9-3.2) K/mm3 Conway # (Auto) 0.5 (0.1-0.6) K/mm3 Eos # (Auto) 0.2 (0-0.3) K/mm3 Baso # (Auto) 0.1 (0.0-0.1) K/mm3 Abs Immat Gran (auto) 0.02 (0.00-0.031) K/mm3 Absolute Neuts (auto) 4.0 (1.3-6.7) K/mm3 Absolute Nucleated RBC 0.000 (0.0-0.012) K/mm3 Nucleated RBC % 0.0 (0.0-0.2) % ESR 13 (0-20) mm/hr Sodium 141 (137-145) mmol/L Potassium 3.9 (3.4-5.0) mmol/L Chloride 105 (98-107) mmol/L Carbon Dioxide 27 (22-30) mmol/L Anion Gap 9 (4-12) mmol/L BUN 13 (7-17) mg/dL Creatinine 0.70 (0.7-1.0) mg/dL Estim Creat Clear Calc 56 ml/min Estimated GFR > 60 (59 - ) Glucose 91 (65-110) mg/dL Calcium 9.7 (8.4-10.2) mg/dL C-Reactive Protein < 0.5 (<1.0) mg/dL Imaging Data Radiologist's impression: CT IAC/mastoid: No left auricular soft tissue collection/phlegmon or abscess identified. Status post left mastoidectomy with packing material within the surgical defect. A few ritual opacified left mastoid air cells. Left middle ear appears well aerated. Left-sided ossicles. Sclerotic malposition. Temporal bone structures are intact. No bone erosion or destruction Critical Care Time Critical Care Time Critical Care Time: No Discharge Plan Discharge Clinical Impression: Acute pain of left ear Patient Disposition: Home, Self-Care Condition: Stable Instructions: Earache (ED) Additional Instructions: Return to the emergency department if you experience fever, redness and swelling around your ear, abnormal drainage from the ear, worsening pain, or any other symptoms that are concerning to you Your blood work and imaging here tonight were reassuring. Tylenol or ibuprofen as needed for pain Follow-up with ENT for further evaluation Patient Language: Bahraini Prescriptions: No Action nystatin-triamcinolone 100,000-0.1 unit/gram-% ointment 1 applic topical BID Qty: 60 0RF omeprazole 40 mg capsule,delayed release(DR/EC) See Rx Instructions .ROUTE .COMPLEX Qty: 90 1RF Dose Instruction: TAKE 1 CAPSULE BY MOUTH DAILY Rx Instructions: TAKE 1 CAPSULE BY MOUTH DAILY rosuvastatin 5 mg tablet See Rx Instructions .ROUTE .COMPLEX Qty: 90 1RF Dose Instruction: TAKE 1 TABLET(5 MG) BY MOUTH DAILY Rx Instructions: TAKE 1 TABLET(5 MG) BY MOUTH DAILY sertraline 50 mg tablet See Rx Instructions .ROUTE .COMPLEX Qty: 90 1RF Dose Instruction: TAKE 1 TABLET BY MOUTH DAILY Rx Instructions: TAKE 1 TABLET BY MOUTH DAILY sertraline 100 mg tablet 100 mg PO DAILY Qty: 90 1RF zolpidem 10 mg tablet 10 mg PO QHS Qty: 30 1RF cholecalciferol (vitamin D3) 10 mcg (400 unit) Capsule 20 mcg PO DAILY calcium citrate 1,200 mg DAILY levothyroxine 75 mcg tablet 75 mcg PO DAILY Qty: 90 1RF losartan 25 mg tablet See Rx Instructions .ROUTE .COMPLEX Qty: 100 1RF Dose Instruction: TAKE 1 TABLET BY MOUTH DAILY AT BEDTIME Rx Instructions: TAKE 1 TABLET BY MOUTH DAILY AT BEDTIME Follow-up/Referrals: Yaya Del Rio MD [Primary Care Provider] - Markel Franz MD [Physician] -
[2024-06-26 18:38] LABS: Basophils Absolute Auto 0.1 K/mm3 (0.0-0.1); Basophils Percent Auto 0.7 % (0.2-1.2); Eosinophils Absolute Auto 0.2 K/mm3 (0-0.3); Eosinophils Percent Auto 2.3 % (0-4.4); Hematocrit 40.7 % (37.0-47.0); Hemoglobin 14.2 g/dL (12.0-15.0); Immature Granulocyte Absolute 0.02 K/mm3 (0.00-0.031); Immature Granulocyte Percent A 0.3 % (0-0.5); Lymphocytes Absolute Auto 2.27 K/mm3 (0.9-3.2); Lymphocytes Percent Auto 32.6 % (18.3-44.2); Mean Corpuscular HGB Conc 34.9 g/dl (32-36); Mean Corpuscular Hemoglobin 30.9 pg (26-34); Mean Corpuscular Volume 88.7 fl (80-100); Mean Platelet Volume 9.2 fl (7.4-10.4); Monocytes Absolute Auto 0.5 K/mm3 (0.1-0.6); Monocytes Percent Auto 7.5 % (2.6-8.5); Neutrophils Percent Auto 56.6 % (45.5-73.1); Platelet Count Result 296 k/mm3 (150-375); Red Blood Count 4.59 M/mm3 (4.2-5.4); Red Cell Distribution Width 12.3 % (11.5-14.5)
[2024-06-26 18:54] LABS: Anion Gap 9 mmol/L (4-12); Blood Urea Nitrogen 13 mg/dL (7-17); CRP < 0.5 mg/dL (<1.0); Calcium 9.7 mg/dL (8.4-10.2); Carbon Dioxide 27 mmol/L (22-30); Chloride 105 mmol/L (98-107); Estimated CRCL calculation 56 ml/min; Estimated Glomerular Filt Rate > 60; Glucose 91 mg/dL (65-110); Potassium 3.9 mmol/L (3.4-5.0); Sodium 141 mmol/L (137-145)
[2024-06-26 19:13] VITALS: BP 147/63; PULSE 71; RESP 16; O2SAT 97
[2024-06-26 19:21] LABS: Erythrocyte Sedimentation Rate 13 mm/hr (0-20)
--- NOTE | 2024-06-26 19:26 | PC.NURSE ---
Report received from DOC Medina. Assumed care of patient at this time.
[2024-06-26] MEDS: ACETAMINOPHEN 500 MG TABLET 1000 MG PO (19:41)
[2024-06-26 22:30] VITALS: BP 161/78; PULSE 65; RESP 17; TEMP 36.4; O2SAT 99
[2024-06-26 23:22] VITALS: BP 144/71; PULSE 63; RESP 19; O2SAT 98
== END 2024-06-26 23:24 | disposition home or self-care (01) ==
PROVIDERS: Emergency Provider Physician Assistant; PCP Family Medicine
DX: H70.002 Acute mastoiditis without complications, left ear (principal); I10 Essential (primary) hypertension; K21.9 Gastro-esophageal reflux disease without esophagitis; F41.1 Generalized anxiety disorder; E03.9 Hypothyroidism, unspecified; Z96.641 Presence of right artificial hip joint; Z96.652 Presence of left artificial knee joint
CPT/HCPCS: 36415; 70481; 80048; 85025; 85652; 86140; 99284; A9270; Q9967

== ENCOUNTER 2024-10-17 07:40 | Outpatient (CLI) | payer MEDICARE, SELFPAY ==
--- OUTSIDE RECORDS SUMMARY | 2024-10-17 07:44 | XMS_ITS | Referral Summary ---
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 There are scattered areas of [...] performed on 05/03/2007 and 05/24/2010, and at [facility] on 12/04/2011. There are scattered areas of fibroglandular density. There is no suspicious abnormality in either breast. Impression: Annual screening mammography is recommended. OVERALL FINAL ASSESSMENT: BI-RADS CATEGORY 1: Negative. Triny Bolaños MD IMG MAMMO PROCEDURES Fi nal Result from Last 3 Months or Most Recently Relevant to Health Maintenance Insurance MEDICARE [facility] MEDICARE [facility] MEDICARE [facility] Advance Directives For more information, please contact: [phone] Documents on File Type Date Recorded Patient Print Project Manager Expl anation Power of Senior Trial Attorney 09/24/2021 11:30 AM Care Teams Coating Engineer Relationship Specialty Start Date End Date Triny Bolaños MD [address] [place] [address] PCP - General 02/15/15 Reuben Cabrera MD [address] [place] [address] Referring Physician Otolaryngology 01/08/21
--- OUTSIDE RECORDS SUMMARY | 2024-10-17 07:44 | XMS_ITS | Clinical Summary ---
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 There are scattered areas [...] performed on 05/03/2007 and 05/24/2010, and at [facility] on 12/04/2011. There are scattered areas of fibroglandular density. There is no suspicious abnormality in either breast. Impression: Annual screening mammography is recommended. OVERALL FINAL ASSESSMENT: BI-RADS CATEGORY 1: Negative. Triny Bolaños MD IMG MAMMO PROCEDURES Fi nal Result from Last 3 Months or Most Recently Relevant to Health Maintenance Insurance MEDICARE [facility] MEDICARE [facility] MEDICARE [facility] Advance Directives For more information, please contact: [phone] Documents on File Type Date Recorded Patient Warehouse Engineer Expl anation Power of Learning And Development Analyst 09/24/2021 11:30 AM Care Teams It Infrastructure Architect Relationship Specialty Start Date End Date Triny Bolaños MD [address] [facility] [address] [place] [address] PCP - General 02/15/15 Reuben Cabrera MD [address] [place] [address] Referring Physician Otolaryngology 01/08/21
--- OUTSIDE RECORDS SUMMARY | 2024-10-17 07:44 | XMS_ITS | Encounter Summary ---
Author Organization [facility] Address [address] [place] [address] Care Team Providers Care Brinell Tester Name Role Phone Aminah Hamm MD Primary Care Provider [phone] Encounter Details Date Type Department Care Team (Late st Contact Info) Description 11/10/2001 Outpatient Historical [facility] [address] 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
--- OUTSIDE RECORDS SUMMARY | 2024-10-17 07:44 | XMS_ITS | Encounter Summary ---
Author Organization [facility] Address [address] [place] [address] Care Team Providers Care Senior Project Manager Engineering Name Role Phone Aminah Hamm MD Primary Care Provider [phone] Encounter Details Date Type Department Care Team (Latest Contact Info) Description 11/16/2001 Outpatient Historical [facility] Florin Santacruz MD [address] [facility] [address] [place] [address] JOINT DERANGEMENT NOS-HAND (Primary Dx) Social History Tobacco Use Types Packs/Day Years Used Date Smoking Tobacco: Never Assessed Comments Unknown Sex and Gender Information Value Date Recorded Sex Assigned at Not on file Legal Sex Female 2:44 AM QUALITY CONTROLLER Gender Identity Not on file Sexual Orientation Not on file documented as of this encounter Plan of Treatment Not on file documented as of this encounter Visit Diagnoses Diagnosis Unspecified derangement of hand joint- Primary documented in this encounter Care Teams Senior Project Manager Engineering Relationship Specialty Start Date End Date Aminah Hamm MD [address] [facility] [address] [place] [address] PCP - General 11/16/01 documented as of this encounter
--- OUTSIDE RECORDS SUMMARY | 2024-10-17 07:45 | XMS_ITS | Clinical Summary ---
Author Organization [facility] Address [address] [facility] Attn: Epic Prelude ADT [place] [address] Care Team Providers Care Meter Reader Chief Name Role Phone Aminah Hamm MD Primary Care Provider [phone] Social History Tobacco Use Types Packs/Day Years Used Date Smoking Tobacco: Never Assessed Comments Unknown Sex and Gender Information Value Date Recorded Sex Assigned at Not on file Legal Sex Female 2:44 AM BLOCK CUTTER Gender Identity Not on file Sexual Orientation [...] 2004 OSTEOPOROSIS SCREENING 2019 INFLUENZA VACCINE (#1) 2024 RSV VACCINE (60+ or ) (1 - 1-dose 75+ series) 2029 Care Teams Meter Reader Chief Relationship Specialty Start Date End Date Aminah Hamm MD [address] [place] [address] [address] [place] [address] PCP - General 11/16/01
== END 2024-10-17 07:41 | disposition home or self-care (01) ==
LOC: ANHAUDASC 07:43
PROVIDERS: PCP Family Medicine; Visit Provider Otolaryngology Otolaryngology/Facial Plastic Surgery
DX: H90.3 Sensorineural hearing loss, bilateral (principal)
CPT/HCPCS: 92557; 92567

== ENCOUNTER 2024-11-03 10:17 | Outpatient (CLI) | payer MEDICARE, SELFPAY ==
--- NOTE | ~2024-11-03 | XR_ITS ---
EXAM/ PROCEDURE: XR shoulder LT min 2V - 11/03/2024 10:35 CDT HISTORY: 69 years old Female with ANTERIOR LEFT SHOULDER PAIN COMPARISON: None available TECHNIQUE: Three view(s) FINDINGS/ IMPRESSION: There are no fractures or dislocations.Joint space narrowing, subchondral sclerosis, subchondral cyst formation and osteophyte formation, compatible with mild osteoarthritis. Calcified granuloma in the left lung base. Reviewed, dictated and finalized at location A.
--- OUTSIDE RECORDS SUMMARY | 2024-11-03 10:24 | XMS_ITS | Clinical Summary ---
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 There are scattered areas of [...] performed on 05/03/2007 and 05/24/2010, and at [facility] on 12/04/2011. There are scattered areas of fibroglandular density. There is no suspicious abnormality in either breast. Impression: Annual screening mammography is recommended. OVERALL FINAL ASSESSMENT: BI-RADS CATEGORY 1: Negative. Triny Bolaños MD IMG MAMMO PROCEDURES Fi nal Result from Last 3 Months or Most Recently Relevant to Health Maintenance Insurance MEDICARE [facility] MEDICARE [facility] MEDICARE [facility] Advance Directives For more information, please contact: [phone] Documents on File Type Date Recorded Patient Finishing Machine Operator Automatic Expl anation Power of Head Chef 09/24/2021 11:30 AM Care Teams Risk Control Specialist Relationship Specialty Start Date End Date Triny Bolaños MD [address] [facility] [address] [place] [address] PCP - General 02/15/15 Reuben Cabrera MD [address] [facility] [address] [place] [address] Referring Physician Otolaryngology 01/08/21
--- OUTSIDE RECORDS SUMMARY | 2024-11-03 10:24 | XMS_ITS | Encounter Summary ---
Author Organization [facility] Address [address] [place] [address] Care Team Providers Care Automation Tester Name Role Phone Aminah Hmam MD Primary Care Provider [phone] Encounter Details Date Type Department Care Team (Latest Contact Info) Description 11/16/2001 Outpatient Historical [facility] Florin Santacruz MD [address] [facility] [address] [place] [address] JOINT DERANGEMENT NOS-HAND (Primary Dx) Social History Tobacco Use Types Packs/Day Years Used Date Smoking Tobacco: Never Assessed Comments Unknown Sex and Gender Information Value Date Recorded Sex Assigned at Not on file Legal Sex Female 2:44 AM OVERHEAD CRANE INSPECTOR Gender Identity Not on file Sexual Orientation Not on file documented as of this encounter Plan of Treatment Not on file documented as of this encounter Visit Diagnoses Diagnosis Unspecified derangement of hand joint- Primary documented in this encounter Care Teams Automation Tester Relationship Specialty Start Date End Date Aminah Hamm MD [address] [facility] [address] [place] [address] PCP - General 11/16/01 documented as of this encounter
--- OUTSIDE RECORDS SUMMARY | 2024-11-03 10:24 | XMS_ITS | Encounter Summary ---
Author Organization [employer] [facility] Address [address] [place] [address] Care Team Providers Care Watch Electrician Name Role Phone Aminah Hamm MD Primary Care Provider [phone] Encounter Details Date Type Department Care Team (Late st Contact Info) Description 11/10/2001 Outpatient Historical [facility] Support Serv. ([facility]) [address] [place] [address] Chris Mann Social History Tobacco Use Types Packs/Day Years Used Date Smoking Tobacco: Never Assessed Comments Unknown Sex and Gender Information Value Date Recorded Sex Assigned at Not on file Legal Sex Female 2:44 AM ELECTROMECHANICAL ENGINEER Gender Identity Not on file Sexual Orientation Not on file documented as of this encounter Plan of Treatment Not on file documented as of this encounter Visit Diagnoses Not on filedocumented in this encounter Care Teams Watch Electrician Relationship Specialty Start Date End Date Aminah Hamm MD [address] [place] [address] [address] [place] [address] PCP - General 11/16/01 documented as of this encounter
--- OUTSIDE RECORDS SUMMARY | 2024-11-03 10:24 | XMS_ITS | Referral Summary ---
Author Organization [facility] [address] [facility] Address [address] [place] [address] Care Team Providers Care Beef Skinner Name Role Phone Triny Bolaños MD Primary [...] file Legal Sex Female 3:51 AM AUTOMOTIVE QUALITY MANAGER Gender Identity Female 01/01/2021 3:32 PM CDT [...] on 05/03/2007 and 05/24/2010, and at [facility] on 12/04/2011. There are scattered areas [...] on 05/03/2007 and 05/24/2010, and at [facility] on 12/04/2011. There are scattered areas of fibroglandular density. There is no suspicious abnormality in either breast. Impression: Annual screening mammography is recommended. OVERALL FINAL ASSESSMENT: BI-RADS CATEGORY 1: Negative. Triny Bolaños MD IMG MAMMO PROCEDURES Fi nal Result from Last 3 Months or Most Recently Relevant to Health [place] [address] [facility] MEDICARE [facility] MEDICARE [facility] Advance Directives For more information, please contact: [phone] Documents on File Type Date Recorded Patient Mouthpiece Maker Expl anation Power of Athletics Teacher 09/24/2021 11:30 AM Care Teams Beef Skinner Relationship Specialty Start Date End Date Triny Bolaños MD [address] [place] [address] PCP - General 02/15/15 Reuben Cabrera MD [address] [place] [address] Referring Physician Otolaryngology 01/08/21
--- OUTSIDE RECORDS SUMMARY | 2024-11-03 10:24 | XMS_ITS | Clinical Summary ---
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
== END 2024-11-03 10:18 | disposition home or self-care (01) ==
PROVIDERS: PCP Family Medicine
DX: M25.512 Pain in left shoulder (principal); J98.4 Other disorders of lung
CPT/HCPCS: 73030

== ENCOUNTER 2025-03-28 10:31 | Outpatient (CLI) | payer MEDICARE, SELFPAY ==
--- NOTE | 2025-03-28 10:43 | ECG_ITS ---
Test Date: 2025-03-28 10:57:59 Measurements Intervals [place] Rate: 62 P: 2 MD: 175 QRS: 25 QRSD: 67 T: 19 QT: 379 QTc: 387 Interpretive Statements SINUS RHYTHM LOW QRS VOLTAGE IN PRECORDIAL LEADS CANNOT R/O SEPTAL INFARCT, AGE INDETERMINATE BASELINE ARTIFACT- I, II, III, AVR, AVL, AVF ABNORMAL ECG No previous ECG available for comparison Electronically Signed On 03-28-2025 11:32:25 BUSINESS AND MARKETING TEACHER by Sohail Sal D.O.
--- OUTSIDE RECORDS SUMMARY | 2025-03-28 12:30 | XMS_ITS | Clinical Summary ---
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
--- OUTSIDE RECORDS SUMMARY | 2025-03-28 12:30 | XMS_ITS | Encounter Summary ---
Author Organization [facility] Address 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
--- OUTSIDE RECORDS SUMMARY | 2025-03-28 12:30 | XMS_ITS | Encounter Summary ---
Author Organization [employer] Address [address] [place] [address] Care Team Providers Care Sewing Department Supervisor Name Role Phone Aminah Hamm MD Primary Care Provider [phone] Encounter Details Date Type Department Care Team (Late st Contact Info) Description 11/10/2001 Outpatient Historical [facility] Support Serv. ([facility]) [address] [place] 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
--- OUTSIDE RECORDS SUMMARY | 2025-03-28 12:30 | XMS_ITS | Clinical Summary ---
Author Organization [place] [id number] [facility] Address [address] [place] [address] Care Team Providers Care Tooth Grinder Name Role Phone Reuben Cabrera MD Unavailable Yaya Del Rio MD Primary Care Provider Allergies Active Allergy Reactions Criticality Noted Date Comments Ciprofloxacin Blisters High 10/07/2019 Penicillin G Blisters High 10/07/2019 Medications zolpidem (AMBIEN) 10 mg tablet Take 1 tablet (10 mg total) by mouth nightly 12/27/2020 Active rosuvastatin (CRESTOR) 5 mg tablet Take 1 tablet (5 mg total) by mouth daily 10/17/2020 Active omeprazole (PriLOSEC) 40 mg capsule Take 1 capsule (40 mg total) by mouth daily 12/23/2020 Active losartan (COZAAR) 25 mg tablet Take 1 tablet (25 mg total) by mouth daily 11/30/2020 Active levothyroxine sodium (LEVOTHYROXINE ORAL) Take 75 mcg by mouth daily 11/15/2020 Active baclofen (LIORESAL) 5 mg tablet TAKE 1 TABLET BY MOUTH EVERY 8 HOURS NEEDED FOR MUSCLE SPASM 01/05/2025 Active Lexapro 20 mg tablet Active hydrOXYzine (ATARAX) 25 mg tablet Take by mouth 2 (two) times a day as needed 11/01/2024 Active Active Problems Problem Noted Date Diagnosed Date Aortic valve regurgitation 09/24/2021 Shortness of breath 09/24/2021 Abnormal mammogram 06/30/2010 Encounters Date Type Department Care Team Description 01/12/2025 9:15 AM CDT Office Visit [facility] Medical [facility] Cardiology at [address] [place] [address] Mc Gill MD Aortic valve insufficiency, etiology of cardiac valve disease unspecified (Primary Dx); Need for lipid screening 01/05/2025 10:15 AM CDT Ancillary Procedure [facility] Medical [facility] Cardiology [address] [place] [id number] Aortic valve insufficiency, etiology of cardiac valve disease unspecified from Last 3 Months Surgical History Surgery Date Site/Laterality Comments TYMPANOPLASTY [...] Packs/Day Years Used Date Smoking Tobacco: Never Comments Unknown Sex and Gender Information Value Date Recorded Sex Assigned at Not on file 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 Female 3:51 AM PROFESSOR OF 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 Gender Identity Female 01/01/2021 3:32 PM CDT Sexual Orientation Lesbian 01/01/2021 3: 32 PM CDT Last Filed Vital Signs Vital Sign Reading Time Taken Comments Blood Pressure 102/64 01/12/2025 9:11 AM CDT Pulse 84 01/12/2025 9:11 AM CDT Temperature 36.3 C (97.3 F) 10/07/2019 9:11 AM CDT Respiratory Rate - - Oxygen Saturation 97% 01/12/2025 9:11 AM CDT Inhaled Oxygen Concentration - - Weight 66.5 kg (146 lb 11.2 oz) 01/12/2025 9:11 AM CDT Height 154.9 cm (5' 1) 01/12/2025 9:11 AM CDT Body Mass Index 27.72 01/12/2025 9:11 AM CDT Plan of Treatment Health Maintenance [...] Well Visit 65+ 2019 Influenza Vaccine (#1) 2024 9, 02/01/2018, 01/28/2017, Additional history exists Procedures Procedure Name Priority Date/Time Associated Diagnosis Comments POCT LIPID PANEL Routine 01/12/2025 3:10 PM CDT Need for lipid screening TRANSTHORACIC ECHO (TTE) COMPLETE W DOPPLER/CF WO CONTRAST Routine 01/06/2025 10:38 AM CDT Aortic valve insufficiency, etiology of cardiac valve disease unspecified SCREENING MAMMOGRAM BILATERAL W EDUIN Schedule Routine, Read Routine (OP Routine) 12/10/2017 12:20 PM CDT Encounter for screening mammogram for malignant neoplasm of breast from Last 3 Months or Most Recently Relevant to Health Maintenance Results * POCT lipid panel (01/12/2025 3:10 PM CDT) Cholesterol, POC 123 <200 MG/DL HDL, POC 52 >=40 mg/dL Triglycerides, POC 70 <=149 mg/dL LDL Cholesterol POC 57 <=129 mg/dL Chol/HDL Ratio, POC 2.4 NONE Non-HDL Cholesterol, POC 71 NONE mg/dL Cholesterol Total, POC 123 30 - 199 mg/dL Capillary blood 01/12/2025 3 :10 PM CDT us Mc Gill MD POINT OF CARE TEST ORDER BALAJI Final Result * TRANSTHORACIC ECHO (TTE) COMPLETE W DOPPLER/CF WO CONTRAST (01/06/2025 10:38 AM CDT) Estimated EF 70 % CONS SCIMAGE EF Mod BP 73 % CONS SCIMAGE Anatomical Region Laterality Modality Ultrasound 01/05/2025 10:2 3 AM CDT Narrative 01/05/2025 5:42 PM CDT [facility] Medical [facility] Cardiology [address] [facility] [address], [place] [address] [address] [facility] [address], [place] [address] P:[phone] P:[phone] Echocardiographic Report Patient Name: SILVANA SANTOS M : 1955 Study Date: 01/05/2025 10:23:51 AM Gender: F Crowning Hammer Operator: Michelle Wong)(CT), [facility] Location: [facility] Provider: MC GILL Height(Cm): 155 BSA: 1.66 Weight(Kg): 64 Heart Rate: 66 BP: 112 / 70 Quality: Good Order Provider: MC GILL PROCEDURES: Echocardiographic Report: Transthoracic echocardiogram with complete 2D, M-Mode, and color Doppler examination. With Strain Analysis. INDICATIONS: I35.1 Nonrheumatic aortic (valve) insufficiency. MEASUREMENTS: 2D/MM Value Range Doppler Value Range EF Mod BP 73 % [ 54 - 74 ] RODRI Vmax 1.75 cm2 [ 2.00 - 4.00 ] Estimated EF 70 % AV Mean PG 5 mmHg LV GLS -20.23 % AV Peak Christian 1.57 m/s [ 1.00 - 1.70 ] LVIDd 2D 3.89 cm [ 3.80 - 5.20 ] AV Peak PG 10 mmHg LVIDs 2D 2.40 cm [ 2.20 - 3.50 ] AV VTI 36.21 cm LVPWd 2D 0.87 cm [ 0.60 - 0.90 ] LVOT Diam 2.00 cm [ 1.70 - 2.10 ] IVSd 2D 1.11 cm [ 0.60 - 0.90 ] LVOT Peak Christian 0.88 m/s [ 0.70 - 1.10 ] AoR Diam 2D 2.55 cm [ 2.70 - 3.70 ] LVOT VTI 21.26 cm LA Volume 29.93 ml [ 22.00 - 52.00 ] MV E Peak Christian 0.96 m/s [ 0.60 - 1.30 ] LA Volume Index 18 cc/m2 [ 16 - 28 ] MV A Peak Christian 0.95 m/s [ 1.00 - 1.20 ] RA Volume 25.89 ml MV Decel Time 114 msec [ 104 - 258 ] PV Peak Christian 1.06 m/s [ 0.40 - 0.80 ] TR Peak Christian 2.14 m/s [ 1.00 - 2.80 ] TR Peak PG 18 mmHg RV S` 11.80 mmHg Lateral E` 0.08 m/s [ 0.10 - 0.15 ] Septal E` 0.08 m/s [ 0.08 - 0.15 ] E` 0.08 m/s E/E` 12 Tapse 2.45 cm [ 1.71 - 5.00 ] 2D/MM Value Range Doppler Value Range - FINDINGS: Interpretation Site: Exam was interpreted at [facility]. Left Ventricle: Normal left ventricular size. Normal global left ventricular systolic function. Normal left ventricular diastolic function. Ejection fraction is measured at 73 %. Ejection Fraction is visually estimated to be 70 %. Global Longitudinal Strain is -20 %. Right Ventricle: Normal right ventricular size. Left Atrium: The left atrium is normal in size. Right Atrium: The right atrium is normal in size. Atrial Septum: Normal atrial septum. Mitral Valve: Normal appearance of the mitral valve. Aortic Valve: Normal appearance of the aortic valve. Mild to moderate aortic valve regurgitation. Tricuspid Valve: Normal appearance of the tricuspid valve. Pulmonic Valve: Normal appearance of the pulmonic valve. Moderate pulmonic regurgitation. Pericardium: Normal pericardium with no significant pericardial effusion. Aorta: Normal aortic root. IVC: Normal size and normal respiratory collapse consistent with normal right atrial pressure (<5 mmHg). Pulmonary Artery: Normal pulmonary artery size. CONCLUSIONS: Normal left ventricular size. Normal global left ventricular systolic function. Normal left ventricular diastolic function. Ejection fraction is measured at 73 %. Ejection Fraction is visually estimated to be 70 %. Global Longitudinal Strain is -20 %. The left atrium is normal in size. Normal appearance of the aortic valve. Mild to moderate aortic valve regurgitation. Normal appearance of the pulmonic valve. Moderate pulmonic regurgitation. Electronically Signed By: Mc Gill MD, [facility] 01/05/2025 5:41:28 PM CDT Procedure Note Mc Gill MD - 01/05/2025 [facility] Medical Group Cardiology [address] [facility] [address], [place] [address] [address] [facility] [address] [place] [address] P:[phone] P:[phone] Echocardiographic Report Patient Name: SILVANA SANTOS M : 1955 Study Date: 01/05/2025 10:23:51 AM Gender: F Crowning Hammer Operator: Michelle Wong)(CT), [facility] Location: [facility] Provider: MC GILL Height(Cm): 155 BSA: 1.66 Weight(Kg): 64 Heart Rate: 66 BP: 112 / 70 Quality: Good Order Provider: MC GILL PROCEDURES: Echocardiographic Report: Transthoracic echocardiogram with complete 2D, M-Mode, and color Dopplerexamination. With Strain Analysis. INDICATIONS: I35.1 Nonrheumatic aortic (valve) insufficiency. MEASUREMENTS: 2D/MM Value Range Doppler ValueRange EF Mod BP 73 % [ 54 - 74 ] RODRI Vmax 1.75cm2 [ 2.00 - 4.00 ] Estimated EF 70 % AV Mean PG 5mmHg LV GLS -20.23 % AV Peak Christian 1.57m/s [ 1.00 - 1.70 ] LVIDd 2D 3.89 cm [ 3.80 - 5.20 ] AV Peak PG 10mmHg LVIDs 2D 2.40 cm [ 2.20 - 3.50 ] AV VTI 36.21cm LVPWd 2D 0.87 cm [ 0.60 - 0.90 ] LVOT Diam 2.00cm [ 1.70 - 2.10 ] IVSd 2D 1.11 cm [ 0.60 - 0.90 ] LVOT Peak Christian 0.88m/s [ 0.70 - 1.10 ] AoR Diam 2D 2.55 cm [ 2.70 - 3.70 ] LVOT VTI 21.26cm LA Volume 29.93 ml [ 22.00 - 52.00 ] MV E Peak Christian 0.96m/s [ 0.60 - 1.30 ] LA Volume Index 18 cc/m2 [ 16 - 28 ] MV A Peak Christian 0.95m/s [ 1.00 - 1.20 ] RA Volume 25.89 ml MV Decel Time 114msec [ 104 - 258 ] PV Peak Christian 1.06 m/s [ 0.40 - 0.80 ] TR Peak Christian 2.14 m/s [ 1.00 - 2.80 ] TR Peak PG 18 mmHg RV S` 11.80 mmHg Lateral E` 0.08 m/s [ 0.10 - 0.15 ] Septal E` 0.08 m/s [ 0.08 - 0.15 ] E` 0.08 m/s E/E` 12 Tapse 2.45 cm [ 1.71 - 5.00 ] 2D/MM Value Range Doppler ValueRange - FINDINGS: Interpretation Site: Exam was interpreted at [facility]. Left Ventricle: Normal left ventricular size. Normal global left ventricular systolicfunction. Normal left ventricular diastolic function. Ejection fraction is measured at 73%. Ejection Fraction is visually estimated to be 70 %. Global Longitudinal Strain is-20 %. Right Ventricle: Normal right ventricular size. Left Atrium: The left atrium is normal in size. Right Atrium: The right atrium is normal in size. Atrial Septum: Normal atrial septum. Mitral Valve: Normal appearance of the mitral valve. Aortic Valve: Normal appearance of the aortic valve. Mild to moderate aortic valveregurgitation. Tricuspid Valve: Normal appearance of the tricuspid valve. Pulmonic Valve: Normal appearance of the pulmonic valve. Moderate pulmonicregurgitation. Pericardium: Normal pericardium with no significant pericardial effusion. Aorta: Normal aortic root. IVC: Normal size and normal respiratory collapse consistent with normal rightatrial pressure (<5 mmHg). Pulmonary Artery: Normal pulmonary artery size. CONCLUSIONS: Normal left ventricular size. Normal global left ventricular systolicfunction. Normal left ventricular diastolic function. Ejection fraction is measured at 73%. Ejection Fraction is visually estimated to be 70 %. Global Longitudinal Strain is-20 %. The left atrium is normal in size. Normal appearance of the aortic valve. Mild to moderate aortic valveregurgitation. Normal appearance of the pulmonic valve. Moderate pulmonicregurgitation. Electronically Signed By: Mc Gill MD, [facility] 01/05/2025 5:41:28 PM CDT Mc Gill MD CV ECHO PROCEDURES Final Result * Screening Mammogram Bilateral W Eduin (12/10/2017 [...] performed on 05/03/2007 and 05/24/2010, and at [facility] on 12/04/2011. There are scattered areas [...] performed on 05/03/2007 and 05/24/2010, and at [facility] on 12/04/2011. There are scattered areas of fibroglandular density. There is no suspicious abnormality in either breast. Impression: Annual screening mammography is recommended. OVERALL FINAL ASSESSMENT: BI-RADS CATEGORY 1: Negative. Triny Bolaños MD IMG MAMMO PROCEDURES Fi nal Result from Last 3 Months or Most Recently Relevant to Health Maintenance Insurance MEDICARE [facility] MEDICARE [facility] Member Subscriber Plan / Payer (Ef fective 2019-Present) Name:Silvana Santos Relation to Subscriber:Self Name:Silvaan Santos Payer ID:[id number] Group ID:Not on file Type:[place] Address: [employer] [address] [place] [id number] MEDICARE [facility] Advance Directives For more information, please contact: [phone] Documents on File Type Date Recorded Patient Deputy Insurance Commissioner Expl anation Power of Adjunct Faculty For Medical Terminology 09/24/2021 11:30 AM Care Teams Tooth Grinder Relationship Specialty Start Date End Date Yaya Del Rio MD [address] [place] [address] PCP - General Family Medicine 12/21/24 Reuben Cabrera MD Referring Physician Otolaryngology 01/08/21
== END 2025-03-28 10:32 | disposition home or self-care (01) ==
LOC: ANHSURGERY 10:35
PROVIDERS: PCP Family Medicine; Visit Provider Orthopaedic Surgery
DX: I38 Endocarditis, valve unspecified (principal); E78.5 Hyperlipidemia, unspecified; I10 Essential (primary) hypertension
CPT/HCPCS: 93005

== ENCOUNTER 2025-04-04 03:34 | Day surgery (SDC) | payer MEDICARE, SELFPAY ==
[2025-03-27 09:57] VITALS: BMI 27.6
--- NOTE | 2025-03-27 10:09 | PC.NURSE ---
[facility] has started construction of its new state of the art ER which will open Spring 2026. With this, we anticipate parking may be a challenge for some our surgical patients and families. Parking spaces are limited but are available for all Surgical, obstetrics, and ER patients sharing this lot. If you arrive and find you are having a hard time finding a parking space, please note that we understand the challenges, please drive around the hospital and park near Hospital Entrance 1. When you enter this entrance, you can ask a volunteer to direct or take you back to the surgical waiting area to check in. We appreciate everyone?s understanding of these expected challenges while we build for your future. Report to the Outpatient Waiting Room, entrance under the green pavilion located off [address], at time __0830am on date _04/04/25 . Planned Procedure Time: _10:30am .? Time changes happen often and if your time is changed the preop area will call you the afternoon before. - You and your visitor will be asked to self-screen and do not enter if you have any COVID symptoms. Please call surgeon if you need to reschedule. - A mask is optional within the hospital at this time. Patients may have clear liquids (water, carbonated beverages, clear teas, apple juice) until 3 hours prior to surgery with a maximum of 20 ounces. - No food from midnight until time of surgery and no smoking, or chewing tobacco (or any form of nicotine). No chewing gum, candy or mints. (0730am) Take only the following medications with a SIP of water on the morning of surgery: ____Excitalopram, Levothyroxine, and Baclofen and Hydroxyzine if needed DO NOT STOP ANY OF YOUR OTHER PRESCRIPTION MEDICATIONS PRIOR TO SURGERY EXCEPT THE FOLLOWING Hold all vitamins and supplements for 3 days per anesthesiologist. Date to take last dose 03/31/25 Please no make-up, nail divehi, hairspray, perfume, deodorant, or body powder the day of surgery.? No jewelry (including any body piercings) or valuables the day of surgery, leave them at home.? Please take a shower or bath the night before, or the morning of, surgery with an antibacterial soap.? Wear comfortable, loose fitting clothing.? Children are encouraged to wear pajamas. - Jewelry must be removed prior to entering the operating room.? Rings and piercings that are not removed may be cut off. - The hospital will not accept responsibility for valuables.? - Please leave all valuables, including medications, at home the day of surgery. If you are going home after surgery, a licensed residential recycle driver must drive you home.? - NO public transportation without another adult if you receive anesthesia. - We recommend that an adult stay with you for 24 hours following discharge. - We also recommend that you do not drive, make important decision, drink alcoholic beverages, or take any drugs that were not prescribed by your health care provider for at least 24 hours after your discharge time. Follow any additional instructions given to you from your surgeon. Telephone instructions given to ___Patient and asked if any additional questions and then verbalized understanding. Patient advised to call surgeon office or pre surgery nurse liaison [phone] if any additional questions.
[2025-04-04] VITALS (11 sets, daily range): BP systolic 107–156; BP diastolic 40–90; PULSE 62–100; RESP 12–20; TEMP 36.1–36.9; O2SAT 94–100
--- NOTE | 2025-04-04 07:19 | WPDHPUPDATE1 ---
History and Physical Update Update Date/Time: 04/04/25 07:19 History and Physical has been reviewed, including an updated exam of the patient. There are NO changes in the patient's condition. Risks, benefits, and alternatives have been discussed and questions answered. Patient agrees to proceed with procedure.
[2025-04-04] MEDS: LACTATED RINGERS 1,000 ML 30 ML IV CONT ×2 (09:00→12:27)
[2025-04-04] MEDS: ACETAMINOPHEN 500 MG TABLET 1000 MG PO (09:57)
[2025-04-04] MEDS: KETOROLAC 15 MG/ML VIAL (*BKC) IV PUSH (09:57)
--- NOTE | 2025-04-04 10:03 | WPDANESEPPF ---
Anes - Initial Pre Proc Eval Procedure: Operation Date: 04/04/25 10:30 Proposed Procedures p Left Arthroscopic Rotator Cuff Repair with Subacromial Decompression - Bruno Nickerson MD Date/Time: 04/04/25 10:03 Surgeon: Bruno Nickerson MD Pre Op Diagnosis: Partial Rotator Cuff Tearr Lt Shoulder Patient Data Age: 69 Gender: F Height: 1.55 m Weight: 64.2 kg Last Vital Signs Temp 36.9 C 04/04/25 09:58 Pulse 62 04/04/25 09:58 Resp 16 04/04/25 09:58 BP 122/65 04/04/25 09:58 Pulse Ox 100 04/04/25 09:58 O2 Del Method Room Air 04/04/25 09:58 Allergies Allergy/AdvReac Type Severity Reaction Status Date / Time ciprofloxacin Allergy Severe blisters Verified 04/04/25 09:53 codeine Allergy Mild itching Verified 04/04/25 09:53 latex Allergy Unknown Rash Verified 04/04/25 09:53 mannitol (From Reclast) AdvReac Intermediate Fever Verified 04/04/25 09:53 water for injection,sterile AdvReac Intermediate Fever Verified 04/04/25 09:53 (From Reclast) zoledronic acid (From AdvReac Intermediate Fever Verified 04/04/25 09:53 Reclast) Home Medications ?Medication ?Instructions ?Recorded ?Confirmed ?Type cholecalciferol (vitamin D3) 10 20 mcg PO DAILY 03/18/23 03/27/25 History mcg (400 unit) capsule omeprazole 40 mg capsule,delayed See Rx Instructions .Route 11/21/24 04/04/25 Rx release .COMPLEX #90 caps rosuvastatin 5 mg tablet See Rx Instructions .Route 11/21/24 03/27/25 Rx .COMPLEX #90 tabs escitalopram oxalate 20 mg tablet 20 mg PO DAILY #90 tabs 12/06/24 04/04/25 Rx levothyroxine 75 mcg tablet 75 mcg PO DAILY #90 tabs 01/03/25 04/04/25 Rx calcium 600 mg (as carbonate)-vit 1 tablet PO BID 02/09/25 03/27/25 History D3 10 mcg (400 unit) chewable tablet (Calcium 600 with Vitamin D3) hydroxyzine HCl 25 mg tablet 25 mg PO BID PRN anxiety #20 tabs 02/09/25 03/27/25 Rx baclofen 5 mg tablet 5 mg PO Q8H PRN muscle spasm #30 02/17/25 03/27/25 Rx tabs losartan 25 mg tablet See Rx Instructions .Route 02/27/25 04/04/25 Rx .COMPLEX #100 tabs nystatin-triamcinolone 100,000 1 applic topical BID #60 grams 02/27/25 03/27/25 Rx unit/gram-0.1 % topical ointment zolpidem 10 mg tablet 10 mg PO QHS #30 tabs 03/31/25 Rx oxycodone-acetaminophen 5 mg-325 1 - 2 tablet PO Q4-6H PRN pain #30 04/04/25 Rx mg tablet tabs Patient hx anesthesia problems: none Family hx anesthesia problems: none Results Review: All pre-operative results and documents have been reviewed as part of the pre-operative evaluation. PMFSH Past Medical History Medical History Partial tear of left rotator cuff Disorder of left temporomandibular joint Otalgia of left ear Bilateral impacted cerumen Croup, spasmodic Difficulty swallowing Cough Atypical chest pain Pes anserine bursitis Impacted cerumen of left ear Obese Cough Upper respiratory infection RLQ abdominal pain Osteoporosis screening Breast cancer screening Aftercare following surgery (12/21/18) Benign essential hypertension Chronic insomnia Gastro-esophageal reflux disease without esophagitis Generalized anxiety disorder Hypothyroidism, unspecified Primary osteoarthritis of left knee Stress at home Surgical History Surgical History History of total right hip arthroplasty (~04/14/23) History of left mastoidectomy Hx of hysterectomy Presence of left artificial knee joint (12/21/18) Family History Family History Father Cerebrovascular accident, Onset Age: 75 Patient's father is Hypertension Sibling Cerebrovascular accident Mother Heart disease Thyroid disorder Social History Social History 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 Smoking status: Never smoker Second hand tobacco smoke exposure: No Additional smoking assessment comments: PT DENIES ALL FORMS OF TOBACCO USE Alcohol intake: never Substance use: never Substance use type: does not use Lack of Transportation: YES Lack of Food: Never True Current Housing: I Have Housing Concerned About Future Housing: No Difficulty Paying Gas/Electric Bills: No Difficulty Paying for Meds: No Currently Unemployed: No Education: Trade/Vocational Certificate Difficulty w/ Childcare or Family Care: No Living arrangements: other Additional living arrangements comments: partner Occupation/Education: retired Gender identity (if verbalized by the patient): Female Sexual Orientation (if Verbalized by the Patient): Lesbian, Flynn, or Homosexual Spiritual care concerns: No Anes - Eval Final PreProcedure Day of Procedure 04/04/25 10:03 Patient weight: overweight Heart: regular rate and rhythm Lungs: clear to auscultation Airway: Mallampati scale class II Neurological: alert and oriented Last oral intake: >/= 8 hours ASA classification: III Emergent: no Anesthetic plan: proceed Anesthesia type and monitoring: general LMA and standard monitoring Results Review: All pre-operative results and documents have been reviewed as part of the pre-operative evaluation. Informed Consent: The patient's anesthetic plan and its attendant risks and benefits were discussed with the patient/family/POA. Questions were solicited and answers provided to the satisfaction of the patient/family/POA.
[2025-04-04] MEDS: ceFAZolin 2 GM in SODIUM CHLORIDE 0.9% IV 50 ML 100 ML IVPB (10:13)
[2025-04-04] MEDS: BUPIVACAINE/EPINEPHRINE 0.5% 50 ML VIAL 30 ML INFILTRATE (10:49)
--- NOTE | 2025-04-04 11:52 | W.PM.PROC2 ---
Procedure Note - Detailed Date of Procedure 04/04/25 Pre-op Diagnosis Partial Rotator Cuff Tear left Shoulder, Subacromial impingement. Post-op Diagnosis Other (1. Rotator cuff tear partial bursal side 2. Subacromial impingement) Procedure Performed Left shoulder 1. Arthroscopic rotator cuff repair 2. Arthroscopic subacromial decompression Surgeon Bruno Nickerson MD Farm Operations Technical Director Nicole Sharif PA-C Anesthesia General Findings Mid grade bursal side tear near the musculoskeletal junction of the superior cuff. Definite impingement on the prominient inferior bone projections at the anterolateral acromion and distal clavicle. This bone was removed with the bur. The tear was repaired with 2 side to side sutures. Description of Procedure Preoperative antibiotics were given. An interscalene block was administered in the preoperative area. The patient was bought brought to the operating room. A general anesthetic was administered. The patient was carefully positioned in the beach chair position. The head and neck were carefully positioned. The non operative extremity was also carefully positioned. The shoulder was prepped and draped in the usual sterile fashion. Examination was performed. Standard posterior and anterior arthroscopic portals were established. Inflow achieved with the arthroscopic pump using saline and epinephrine. The glenohumeral joint was carefully inspected. Mild humeral chondromalacia grade I. No other pathology. Attention was turned to the subacromial space. The bursa was thickened. There appeared to be definite impingement of the anterolateral acromion the cuff near the supraspinatus and infraspinatus margin and the muscular tendinous area. There were calcifications consistent with calcific tendinitis seen on the x-ray. A complete bursectomy was performed. The anterolateral acromion was debrided with the arthroscopic shaver and bur. The distal clavicle had a significant inferior prominence which was also treated with the arthroscopic bur. The tear configuration was carefully assessed. At this point, 2 sutures were passed through the rotator cuff using a percutaneous passing technique utilizing a spinal needle and a retrograde Bird[place]ak passer. The sutures were tied arthroscopically. The arthroscopic instruments were removed. The wounds were closed with 3-0 Monocryl subcuticular suture and steri strips. There were no complications. A sling was applied and the patient brought to the recovery room. Physician office administrative assistant, Nicole Sharif PA-C, required for surgery; including patient positioning, draping, arthroscopic camera operation, maintaining instrument position, suture retrieval, wound closure, and dressing and sling placement. Estimated Blood Loss 20 Pathology None sent Complications No immediate complications Condition Stable Disposition PACU [facility] Billing Surgery - Charge Forward: Surgery Billing
[2025-04-04] MEDS: ONDANSETRON INJ 4 MG/2 ML VIAL IV PUSH (12:08)
[2025-04-04] MEDS: fentaNYL CITRATE INJ (*CRX) 100 MCG/2 ML VIAL 25 MCG IV PUSH (13:02)
[2025-04-04] MEDS: oxyCODONE HCL (*CRX) 5 MG TAB IR PO (13:51)
== END 2025-04-04 14:48 | disposition home or self-care (01) ==
PROVIDERS: PCP Family Medicine; Visit Provider Orthopaedic Surgery
PROC: (CPT 29805; principal; 2025-04-04 10:30)
DX: M75.112 Incomplete rotator cuff tear or rupture of left shoulder, not specified as traumatic (principal); M75.42 Impingement syndrome of left shoulder; M75.32 Calcific tendinitis of left shoulder
CPT/HCPCS: 29827; 29826; J0690; A9270; J0166; J1100; J1171; J1200; J1885; J2250; J2405; J2704; J3010; J7120